=== PATIENT | female | born 1980 | race Caucasian/White ===

== ENCOUNTER 2022-06-16 08:00 | Outpatient (NON) | payer OTHER, SELFPAY | END 2022-06-16 08:01 | disposition home or self-care (01) | PROVIDERS: PCP Family Medicine; Visit Provider Nurse Practitioner | DX: D49.2 Neoplasm of unspecified behavior of bone, soft tissue, and skin (principal) | CPT/HCPCS: 88305 ==

== ENCOUNTER 2025-05-29 09:54 | Emergency (ER) | payer BC, SELFPAY ==
[2025-05-29 10:01] VITALS: BP 105/67; PULSE 53; RESP 18; TEMP 36.7; O2SAT 100
--- OUTSIDE RECORDS SUMMARY | 2025-05-29 10:35 | XMS_ITS | Clinical Summary ---
Author Organization [facility] Address [address] [place] [address] Care Team Providers Care Service Car Driver Name Role Phone Jenelle Booker MD Unavailable [phone] Catarino Sam MD Primary Care Provider [phone] Loli Adam MD Unavailable [phone] Allergies Active Allergy Reactions Criticality Noted Date Comments Chlorzoxazone Hives Medium Reaction: Hives, Lansoprazole Vomiting Low Reaction: Vomiting, Metronidazole Rash Medium Reaction: Rash, Sulfa (Sulfonamide Antibiotics) Hives,Rash Medium Reaction: Hives, Skin Rash, Sulfanilamide Hives Medium Medications levothyroxine (SYNTHROID, LEVOTHROID) 25 mcg tablet TAKE 1 TABLET BY MOUTH EVERY DAY 90 tablet 8 Active SUMAtriptan (IMITREX) 100 mg tablet Take 1 tablet (100 mg total) by mouth once as needed for migraine 2 Active creatine monohydrate 5,000 mg powder in packet Take by mouth as needed After working out Active glutamine 1,000 mg tablet Take by mouth daily Active ascorbic acid/collagen hydr (COLLAGEN SKIN RENEWAL ORAL) Take by mouth daily Active colostrum, bovine (COLOSTRUM PRIME LIFE ORAL) Take by mouth daily Active vitamin B complex capsule Take 1 capsule by mouth daily Active cetirizine (ZyrTEC) 10 mg tablet Take 1 tablet (10 mg total) by mouth daily Active UNABLE TO FIND daily Med Name: Electrolyte Drink Active ibuprofen (ADVIL,MOTRIN) 600 mg tablet Take 1 tablet (600 mg total) by mouth every 6 (six) hours as needed for pain 20 tablet Active Active Problems Problem Noted Date Diagnosed Date Breast pain 03/26/2025 Fibroadenoma of breast, 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 Well woman exam 09/19/2024 Overview (04/28/2025): 04/28/25- ledy with extremely dense breast. MRI recommended q 1-2 years. - ordered by breast surgery 04/2025 Assessment & Plan (09/19/2024 4:26 PM CUT OUT WORKER): Due in 12/2024 Encounter for sterilization 07/31/2024 Assessment & Plan (09/19/2024 4:21 PM CUT OUT WORKER): Doing well Assessment & Plan (08/29/2024 4:27 PM CUT OUT WORKER): Procedure reviewed along with risk, benefits and alternatives as they pertain to her specifically. Questions answered Post op pain management discussed. She voices understanding and desired to proceed. Sterilization 03/31/2023 Assessment & Plan (01/25/2024 9:45 AM CDT): Procedure reviewed along with risk, benefits and alternatives as they pertain to her specifically. Questions answered Post op pain management discussed. She voices understanding and desired to proceed. Assessment & Plan (04/10/2023 4:16 PM CDT): Will schedule blt Hypothyroidism 06/19/2015 Overview (10/20/2016): Hypothyroidism Resolved Problems Problem Noted Date Diagnosed Date Resolved Date Excessive growth affec ting management of in third trimester 04/15/2019 12/17/19 23 Antepartum multigravida of a dvanced maternal age 0904/08/2019 12/16/2022 Supervision of other high ri sk , antepartum 04/05/2019 12/16/2022 Overview (04/08/2019): [] Co-management vs. [] Full [facility] Care; Referring Provider: Jenelle Booker [phone] [x] Dating Criteria: LMP 08/15/18; US 03/05/19 with RITCHIE 05/22/19 [x] Labs: Rh [A+], Ab [negative], Rubella [immune], HIV [non-reactive], HepBSAg [non-reactive], RPR [non-reactive], GC/CT [negative/negative] [x] Genetic Screenin11/08/18: No Aneuploidy for chromosome 13,18 and 21. 11/15/18 Carrier Screen negative. 01/01/19 AFP negative for OBS [x] CBC/Hgb 12.3/plt 36.2/plt 328 [] Early 1hr GTT (if indicated) [x] UCx: 11/08/18 no growth [] Pap: [] LD ASA (if indicated) starting at 12 weeks: [] EPDS [ ]; PNBHS referral (if indicated) 2nd Tri Labs: [] Anatomy ultrasound: [x] CBC/1hr gtt at 24-28wks: 02/28/19 GTT 91 [] Flu Shot (Mar-Jun): [] Tdap (27-36wks): [] Rhogam at 28 wks (if Rh neg): 3rd Tri Labs: [x] CBC/HIV/RPR/T&S:02/28/19: 11.5/33.6; HIV non-reactive; RPR non-reactive [] GBS: [] GC/CT (if indicated): Counselling [] MOD: [] Place of delivery: [] MOC: [] Method of feeding: [] Financial Auditor: [] PP Depression Discussed: Hypothyroid in , antepartum 04/05/2019 12/16/2022 Polyhydramnios in third trim mari, not applicable or unspecified fetus 04/05/2019 12/17/19 Overview (04/05/2019): 02/27/2019 ENRIQUE 23.7cm 03/05/2019 ENRIQUE 22.6 cm, DVP 6.3 cm (WNL) 03/13/2019 ENRIQUE 23 (WNL) 03/26/2019 ENRIQUE 27.79 cm, DVP 8.7cm H/o poly in prior Pyelectasis of fetus - RESOLVED 04/05/2019 12/16/2022 Overview (04/05/2019): 02/27/2019 Rt 5.5mm, 4.8mm (28w0d) 03/05/2019 Rt 5 mm, Lt 5 mm 03/13/2019,Rt. <5mm, Lt <5mm 03/26/2019 RESOLVED Appendicitis 10/17/2016 04/05/2019 Overview (12/09/2016): Appendicitis depression 06/19/20152018 Overview (10/20/2016): depression Encounters Date Type Department Care Team Description 04/28/2025 Results Follow-Up [facility] Women[facility] at [address] [phone] Loli Adam MD Diagnostic Mammogram Bilateral W Tello 04/24/2025 8:30 AM CDT - 04/24/2025 11:59 PM CDT Hospital Encounter [facility] - Breast Imaging [facility]0 [facility] Floor [address] [place] [address] Abnormal mammogram Discharge Disposition: Discharge to home or self care 04/24/2025 8:28 AM CDT - 04/24/2025 11:59 PM CDT Hospital Encounter [facility] - Breast Imaging [address] [facility] Floor [address] [place] [address] Abnormal mammogram; Lump in female breast; Fibroadenoma of breast, left; Extremely dense tissue of both breasts on mammography; Family history of breast cancer Discharge Disposition: Discharge to home or self care 04/24/2025 8:00 AM CDT Office Visit [facility] Surgery [facility] [address] [phone] Luli Khan NP Fibroadenoma of breast, left (Primary Dx); Extremely dense tissue of both breasts on mammography; Family history of breast cancer 04/15/2025 Orders Only [facility] Medicine Surgery [address] [place] [phone] Luli Khan NP 04/10/2025 Orders Only [facility] Surgery [address] [place] [phone] Allyssa Oates NP Abnormal mammogram (Primary Dx) 04/10/2025 Orders Only [facility] Surgery [address] [place] [phone] Allyssa Oates NP Abnormal mammogram (Primary Dx) 04/07/2025 Orders Only [facility] [address] [place] [address] [address] [place] [phone] Vanessa Resendez NP 03/28/2025 Results Follow-Up [facility] Women[facility] Care at [address] [phone] Vanessa Resendez NP Pap, reflex HPV 03/26/2025 8:30 AM CDT Office Visit [facility] [address] [place] [address] [address] [place] [phone] Vanessa Resendez NP Well woman exam (Primary Dx); Decreased libido; Breast pain; Fibroadenoma of breast, left; Encounter for screening mammogram for malignant neoplasm of breast from Last 3 Months Immunizations Immunization Administration Dates Next Due HPV, Quadrivalent 05/15/2007,01/09/2007,11/09/19 07 Influenza, Quadrivalent, Spl it, Intramuscular 06/19/2015 Influenza, Quadrivalent, Spl it, Preservative Free, Intramuscular 06/06/2021,04/28/2020,04/11/2019,04/16 Pfizer SARS-CoV-2 Monovalent Vaccination (12+ Yrs) PURPLE 06/06/2021 Tdap 04/11/2019,10/06/2014 Surgical History Surgery Date Site/Laterality Comments OTHER SURGICAL HISTORY laparotomy for endometriosis APPENDECTOMY 07/17/2016 - 07/16/2017 Laparoscopic Appendectomy TUBAL LIGATION Medical History Medical History Date Comments Hx Other Medical gastris reflux Hx Other Medical Endometrious en dscopy Hx Other Medical IBS Endometritis Endometriosis Hx Other Medical 2009 Endoscopy PONV (postoperative nausea and vomiting) Hypothyroidism Anemia Anxiety GERD (gastroesophageal reflux disease) Stroke (HCC) Family History Medical History Relation Name Comments Other Brother 2 Alive and well; Diabetes Father Diabetes mellit us; Other Father Alive and well; Lymphoma Maternal Grandfather Breast cancer Maternal Grandmother Coronary artery disease Mother Pascual nary artery disease; Other Mother Alive and well; Thyroid disease Mother Thyroid dise ase; Cancer Other 1 Family history of Cancer; Diabetes Other 2 Family history of Diabetes mellitus; Heart disease Other 3 Family history of Heart disease; Osteoarthritis Other 4 Family histor y of Osteoarthritis; Colon cancer Paternal Grandfather Relation Name Status Comments Brother 1 Alive Brother 2 Father Alive Maternal Grandfather Maternal Grandmother Mother Alive Other 1 Other 2 Other 3 Other 4 Paternal Grandfather Social History Tobacco Use Types Packs/Day Years Used Date Smoking Tobacco: Former Cigarettes Q uit: 07/17/2002 Passive Smoke Exposure: Past Smokeless Tobacco: Never Tobacco Cessation:Counseling Given: Not Answered Alcohol Use Standard Drinks/Week Comments Yes 0 (1 standard drink = 0.6 oz pur e alcohol) Humiliation, Afraid, Rape, and Kick questionnair e Answer Date Recorded Within the last year, have y ou been afraid of your partner or ex-partner? No 03/15/2023 Within the last year, have y ou been humiliated or emotionally abused in other ways by your partner or ex-partner? No Within the last year, have y ou been kicked, hit, slapped, or otherwise physically hurt by your partner or ex-partner? No 03/15/2023 Within the last year, have y ou been raped or forced to have any kind of sexual activity by your partner or ex-partner? No 03/15/2023 AUDIT-C Answer Date Recorded Q1: How often do you have a drink containing alc ohol? Monthly or less 08/28/2024 Q2: How many drinks containi ng alcohol do you have on a typical day when you are drinking? 1 or 2 08/28/2024 Frequency of Binge Drinking Not on file 08/17 PHQ-2 Answer Date Recorded PHQ-2 Total Score (If total score is 3 or more points, staff should administer the PHQ-9) 0 03/26/2025 Personal Safety Answer Date Recorded Have you ever been in or are you currently in a harmful physical or emotional relationship or is someone making you feel afraid or unsafe? Denies 09/05/2024 Comments No Sex and Gender Information Value Date Recorded Sex Assigned at Not on file Legal Sex Female 11:42 AM CUT OUT WORKER Gender Identity Not on file Sexual Orientation Straight 10/10/2022 8: 42 AM CDT Obstetrics History Para Term AB IAB SAB Ectopic Multiple Livin g Live Births 2 2 2 Date Outcome GA Total Labor Labor//3rd Weight Sex Type Anes PTL Leana A1 A5 Name Clin Term M Vaginal Term F Vaginal Last Filed Vital Signs Vital Sign Reading Time Taken Comments Blood Pressure 95/56 04/24/2025 8:03 AM CDT Pulse 55 04/24/2025 8:03 AM CDT Temperature 37.3 C (99.1 F) 04/24/2025 8:03 AM CDT Respiratory Rate 18 04/24/2025 8:03 AM CDT Oxygen Saturation 100% 04/24/2025 8:03 AM CDT Inhaled Oxygen Concentration - - Weight 72.2 kg (159 lb 3.2 oz) 04/24/2025 8:40 A M CDT Height 165.1 cm (5' 5) 04/24/2025 8:40 AM CDT Body Mass Index 26.49 04/24/2025 8:40 AM CDT Plan of Treatment Health Maintenance Due Date Last Done Comments Varicella Vaccines (1 of 2 - 13+ 2-dose series) 10/06/1995 Hepatitis B Screening 2000 Covid-19 Vaccine ( season) 2025 06/06/2021, 09/18/2020 Influenza Vaccine (#1) 2025 , 04/28/2020, 04/11/2019, Additional history exists Cervical Cancer Screening 03/26/20262024, 01/03/2024, 12/15/2022 Depression Screening 03/26/2026 03/26/2025, 01/25/2024, 12/15/2022, Additional history exists Regular Well Visit/Exam 18-64 03/26/2026 03/26/2025, 01/03/2024, 12/15/2022, Additional history exists Breast Cancer Screening-Mammogram 04/24/2026 04/24/2025, 02/15/2024, 02/13/2023, Additional history exists DTaP/Tdap/Td Vaccine (3 - Td or Tdap) 04/11/2029 04/11/2019, 10/06/2014 HPV Vaccines Completed 05/15/2007, 12/16, 11/08/2006 Hepatitis C Screening Completed 11/08/2018 Pneumococcal vaccine <65 Aged Out No longer eligible based on patient's age to complete this topic Procedures Procedure Name Priority Date/Time Associated Diagnosis Comments US BREAST LEFT LIMITED Schedule Routine, Read Routine (OP Routine) 04/24/2025 9:31 AM CDT Abnormal mammogram DIAGNOSTIC MAMMOGRAM BILATERAL W TELLO Schedule Routine, Read Routine (OP Routine) 04/24/2025 8:58 AM CDT Lump in female breast PAP, REFLEX HPV Routine 03/26/2025 9:16 AM CDT Well woman exam HEPATITIS C ANTIBODY Routine 11/08/2018 from Last 3 Months or Most Recently Relevant to Health Maintenance Results * US Breast Left Limited (04/24/2025 9:31 AM CDT) Anatomical Region Laterality Modality Breast Left Ultrasound 04/24/2025 9:57 AM CDT Impressions 04/24/2025 10:28 AM CDT 1. The patient's palpable abnormality of the upper outer left breast correlates to an island of dense fibroglandular tissue. 2. No evidence of malignancy in either breast. OVERALL FINAL ASSESSMENT: BI-RADS Category 2: Benign. RECOMMENDATION: 1. Annual screening mammography is recommended. 2. Breast MRI or contrast-enhanced mammography should be considered for supplemental imaging surveillance given extremely dense breast tissue. The above findings and recommendations were communicated to the patient verbally. Dictated by: Flash Li MD PHD The radiology attending physician has personally reviewed this study, and had reviewed and/or edited this written report and agrees with it. Electronically signed by: Ayala Torres MD Narrative 04/24/2025 10:28 AM CDT EXAMINATION: LEFT UNILATERAL DIGITAL DIAGNOSTIC MAMMOGRAM AND DIGITAL BREAST TOMOSYNTHESIS; LEFT BREAST SONOGRAM HISTORY: 44-year-old woman presenting with a palpable area in the upper outer left breast which has been stable for 2 years. It is associated with intermittent tenderness which is not present today. This was evaluated on 02/15/2024 and deemed benign. Family history of breast cancer in her maternal grandmother diagnosed at age 60. COMPARISON: Multiple prior examinations dating back to 2018 including diagnostic mammogram and ultrasound 02/15/2024. TECHNIQUE: Full field digital mammographic views of the LEFT breast were performed, including computer aided detection (CAD) and digital breast tomosynthesis (DBT). Directed ultrasound evaluation of the LEFT breast was performed by a trained chemical laboratory assistant and by Dr. Torres. BREAST PARENCHYMAL COMPOSITION: The breasts are extremely dense, which lowers the sensitivity of mammography. BILATERAL MAMMOGRAM FINDINGS: Subjacent to the triangular skin marker demarcating the patient's reported palpable area, there is a focal asymmetry which appears similar to the prior studies back to 2018. No new suspicious mass, calcification, or architectural distortion in the right breast is seen. There is no new suspicious calcification, architectural distortion or significant change in the left breast. EXAM: Focused exam of the upper outer posterior left breast reveals a 4 x 2 cm ill-defined palpable area. There is no tenderness to palpation. The overlying skin is unremarkable. LEFT SONOGRAM FINDINGS: Targeted left breast ultrasound in the 1:00 left breast 8 cm from nipple corresponding to the palpable area demonstrates an island of dense fibroglandular tissue with no suspicious solid or cystic mass. A normal-appearing lymph node is documented in the 1:00 left breast 11 cm from nipple. us Allyssa Oates NP IMG MAMMO PROCEDURES Final Result * Diagnostic Mammogram Bilateral W Tello (04/24/2025 8:58 AM CDT) Anatomical Region Laterality Modality Breast Bilateral Mammography 04/24/2025 9:57 AM CDT Impressions 04/24/2025 10:28 AM CDT 1. The patient's palpable abnormality of the upper outer left breast correlates to an island of dense fibroglandular tissue. 2. No evidence of malignancy in either breast. OVERALL FINAL ASSESSMENT: BI-RADS Category 2: Benign. RECOMMENDATION: 1. Annual screening mammography is recommended. 2. Breast MRI or contrast-enhanced mammography should be considered for supplemental imaging surveillance given extremely dense breast tissue. The above findings and recommendations were communicated to the patient verbally. Dictated by: Flash Li MD PHD The radiology attending physician has personally reviewed this study, and had reviewed and/or edited this written report and agrees with it. Electronically signed by: Ayala Torres MD Narrative 04/24/2025 10:28 AM CDT EXAMINATION: LEFT UNILATERAL DIGITAL DIAGNOSTIC MAMMOGRAM AND DIGITAL BREAST TOMOSYNTHESIS; LEFT BREAST SONOGRAM HISTORY: 44-year-old woman presenting with a palpable area in the upper outer left breast which has been stable for 2 years. It is associated with intermittent tenderness which is not present today. This was evaluated on 02/15/2024 and deemed benign. Family history of breast cancer in her maternal grandmother diagnosed at age 60. COMPARISON: Multiple prior examinations dating back to 2018 including diagnostic mammogram and ultrasound 02/15/2024. TECHNIQUE: Full field digital mammographic views of the LEFT breast were performed, including computer aided detection (CAD) and digital breast tomosynthesis (DBT). Directed ultrasound evaluation of the LEFT breast was performed by a trained chemical laboratory assistant and by Dr. Torres. BREAST PARENCHYMAL COMPOSITION: The breasts are extremely dense, which lowers the sensitivity of mammography. BILATERAL MAMMOGRAM FINDINGS: Subjacent to the triangular skin marker demarcating the patient's reported palpable area, there is a focal asymmetry which appears similar to the prior studies back to 2018. No new suspicious mass, calcification, or architectural distortion in the right breast is seen. There is no new suspicious calcification, architectural distortion or significant change in the left breast. EXAM: Focused exam of the upper outer posterior left breast reveals a 4 x 2 cm ill-defined palpable area. There is no tenderness to palpation. The overlying skin is unremarkable. LEFT SONOGRAM FINDINGS: Targeted left breast ultrasound in the 1:00 left breast 8 cm from nipple corresponding to the palpable area demonstrates an island of dense fibroglandular tissue with no suspicious solid or cystic mass. A normal-appearing lymph node is documented in the 1:00 left breast 11 cm from nipple. Allyssa Oates NP IMG MAMMO PROCEDURES Final Result * Pap, reflex HPV (03/26/2025 9:16 AM CDT) CLINICAL INFORMATION: Kaylen Romero Comment:None given LMP Kaylen Romero Comment:A Previous Pap Kaylen Romero Comment:NONE GIVEN Prev. Bx Kaylen Romero Comment:NONE GIVEN SOURCE: Kaylen Romero Comment:Cervix, Endocervix Pap, specimen adequacy Kaylen Romero Comment: Satisfactory for evaluation. Endocervical/transformation zone component present. Age and/or menstrual status not provided HPV interp Kaylen Romero Comment: Cytology Results: Negative for intraepithelial lesion or malignancy. COMMENTS Kaylen Romero Comment: This Pap test has been evaluated with the [employer]Prep(R) Imaging System. Alteration Worker Lavon Camacho Comment: YQ, CT(ASCP) CT Screening Location: [facility], [facility] [address] CLIA: [id number] Slide preparation performed at: [facility], [address] [place] [address], [address] CLIA: [id number] Comment Kaylen Romero Comment: EXPLANATORY NOTE: The Pap is a screening test for cervical cancer. It is not a diagnostic test and is subject to false negative and false positive results. It is most reliable when a satisfactory sample, regularly obtained, is submitted with relevant clinical findings and history, and when the Pap result is evaluated along with historic and current clinical information. Thin prep 03/26/2025 9:16 AM CDT 03/27/2025 4:19 PM CDT Vanessa M. Hoemmen BLOCK PRESS OPERATOR LAB CYTOLOGY ORDERABLES Fin al Result [facility] [address] [place] [phone] * Hepatitis C antibody (11/08/2018) SCRIBED HCV ab negative Blood specimen (specimen) Jenelle Booker MD LAB MICROBIOLOGY - [facility] AL ORDERABLES Final Result from Last 3 Months or Most Recently Relevant to Health Maintenance Insurance [employer] [place] [employer] [place] Care Teams Service Car Driver Relationship Specialty Start Date End Date Catarino Sam MD [address] [facility] [address] [place] [address] PCP - General Family Medicine 01/26/22 Jenelle Booker MD [facility] [place] [facility] 04/05/19 Loli Adam MD [address] [facility] [address] [place] [address] Consulting Physician Obstetrics and Gynecology 09/05/24
--- OUTSIDE RECORDS SUMMARY | 2025-05-29 10:35 | XMS_ITS | Encounter Summary ---
Author Organization [facility] Address [address] [place] [address] Phone Care Team Providers Care Appetizer Packer Name Role Phone Catarino Sam MD Primary Care Provider [phone] Ruth Mcdaniels APRN, [facility] Primary Care Provider + Reason for Visit * Reason Comments Medication Refill Encounter Details Date Type Department Care Team (Late st Contact Info) Description 02/07/2022 [facility]ill [facility] [address] [place] [address] Catarino Sam MD [address] [place] [address] Medication Refill Social History Tobacco Use Types Packs/Day Years Used Date Smoking Tobacco: Former Cigarettes 0 Q uit: 2001 Smokeless Tobacco: Never Alcohol Use Standard Drinks/Week Comments Yes 0 (1 standard drink = 0.6 oz pur e alcohol) PHQ-2 Answer Date Recorded PHQ-2 Score 0 06/07/2019 Education Answer Date Recorded What is the highest level of school you have completed or the highest degree you have received? Bachelor's degree (e.g., BA, AB, BS) 12/14/2021 Sexually Active Control Partners Comments Yes Oral Contraceptive Male Comments No Sex and Gender Information Value Date Recorded Sex Assigned at Female 06/19/2023 10:29 AM EARTHMOVING PLANT OPERATOR Legal Sex Female 8:48 PM CDT Gender Identity Female 06/19/2023 10:29 AM EARTHMOVING PLANT OPERATOR Sexual Orientation Straight 06/19/2023 10 :29 AM EARTHMOVING PLANT OPERATOR COVID-19 Exposure Response Date Recorded In the last 10 days, have yo u been in contact with someone who was confirmed or suspected to have Coronavirus/COVID-19? No / Unsure 01/11/2022 7:39 AM CDT documented as of this encounter Miscellaneous Notes * Telephone Encounter - Pratibha Crowell RN - 02/08/2022 10:33 AM CDT Medication failed the protocol, provider to review and approve the medication order if appropriate. Requested Prescriptions Pending Prescriptions Disp Refills escitalopram (LEXAPRO) 10 MG Tablet [Pharmacy Med Name: ESCITALOPRAM 10MG TABLETS] 90 Tablet 2 Sig: Take 1 Tablet by mouth daily. SSRI (6 Month Refill Only) Protocol Failed - 02/07/2022 8:48 AM Failed - Has an encounter in the past 6 months with a depression, anxiety, adjustment disorder, OCD, or PTSD visit diagnosis Passed - No test in the past 12 months or most recent test was negative Passed - No active on record Passed - Visit with relevant provider in past 6 months or upcoming 90 days Recent Visits Date Type Provider Dept 01/11/22 Office Visit Alejandrina Soni APRN, [facility] 12/17/21 Office Visit Catarino Sam MD [facility] Showing recent visits within past 182 days and meeting all other requirements Future Appointments No visits were found meeting these conditions. Showing future appointments within next 90 days and meeting all other requirements Passed - Patient has established therapy with SSRI for at least 6 months documented in this encounter Plan of Treatment Upcoming Encounters Date Type Department Care Team (Late st Contact Info) Description 04/20/2026 7:45 AM CDT Office Visit [facility] - [facility] - [place] [address] [place] [address] Ruth Mcdaniels APRN, SUPERVISOR PAINTING SHIPYARD [address] [place] [address] documented as of this encounter Visit Diagnoses Not on filedocumented in this encounter Additional Health Concerns Assessment Noted Time PHQ-9 Depression Total Score: 0 06/07/20 2:39 PM EARTHMOVING PLANT OPERATOR documented as of this encounter Care Teams Appetizer Packer Relationship Specialty Start Date End Date Catarino Sam MD PCP - General Family Medicine 06/07/19 02/19/24 Ruth Mcdaniels APRN, SUPERVISOR PAINTING SHIPYARD [address] [place] [address] PCP - General Advanced Practice Nurse 02/20/24 documented as of this encounter
--- OUTSIDE RECORDS SUMMARY | 2025-05-29 10:35 | XMS_ITS | Encounter Summary ---
Author Organization [facility] Address [address] [place] [address] Phone Care Team Providers Care Manufacturing Design Engineer Name Role Phone Catarino Sam MD Primary Care Provider [phone] Ruth Mcdaniels APRN, [facility] Primary Care Provider + Reason for Visit * Reason Comments Medication Refill Encounter Details Date Type Department Care Team (Late st Contact Info) Description 06/27/2023 Refill [facility] [address] [place] [address] Catarino Sam MD [address] [place] [address] Medication Refill Social History Tobacco [...] Sex Assigned at Female 06/19/2023 10:29 AM MOBILE SALES TECHNICIAN Legal Sex Female 8:48 PM CDT Gender Identity Female 06/19/2023 10:29 AM MOBILE SALES TECHNICIAN Sexual Orientation Straight 06/19/2023 10 :29 AM MOBILE SALES TECHNICIAN documented as of this encounter Miscellaneous Notes * Telephone Encounter - Pratibha Crowell RN - 06/28/2023 8:50 AM CST Medication failed the protocol, provider to review and approve the medication order if appropriate. Requested Prescriptions Pending Prescriptions Disp Refills SUMAtriptan (IMITREX) 100 MG Tablet [Pharmacy Med Name: SUMATRIPTAN 100MG TABLETS] 9 Tablet 6 Sig: TAKE 1 TABLET BY MOUTH DAILY NEEDED FOR MIGRAINE, MAY REPEAT DOSE IN 2 HOURS IF HEADACHE RECURS Not Delegated - Serotonin Agonists (Oral and Nasal) Protocol Failed - 06/27/2023 8:09 PM Failed - This refill cannot be delegated; check utilization no more than 9 doses per month Failed - No documented Systolic BP > 200 within past 3 months Passed - Visit with relevant provider in past 24 months or upcoming 90 days Recent Visits Date Type Provider Dept 11/11/22 Telemedicine Lorenzo Miller APRN, [facility] [place] 08/10/22 Telemedicine Lorenzo Miller APRN, [facility] 07/19/22 Office Visit Ruth Mcdaniels APRN, [facility] 01/11/22 Office Visit Alejandrina Soni APRN, ASH CONVEYOR OPERATOR [facility] 12/17/21 Office Visit Catarino Sam MD [facility] 08/05/21 Office Visit Catarino Sam MD [facility] [place] Showing recent visits within past 730 days and meeting all other requirements Future Appointments No visits were found meeting these conditions. Showing future appointments within next 90 days and meeting all other requirements Passed - Number of active Serotonergic medications less than 3 LE SALES TECHNICIAN documented in this encounter Plan of Treatment Upcoming Encounters Date Type Department Care Team (Late st Contact Info) Description 04/20/2026 7:45 AM CDT Office Visit [facility] - Family Medicine - [place] [address] [place] [address] Ruth Mcdaniels, PI/SENIOR RESEARCH ASSOCIATE, ASH CONVEYOR OPERATOR [address] [place] [address] documented as of this encounter Visit Diagnoses Not on filedocumented in this encounter Additional Health Concerns Assessment Noted Time PHQ-9 Depression Total Score: 0 06/07/20 19 2:39 PM MOBILE SALES TECHNICIAN documented as of this encounter Care Teams Manufacturing Design Engineer Relationship Specialty Start Date End Date Catarino Sam MD PCP - General Family Medicine 06/07/19 02/19/24 Ruth Mcdaniels, PI/SENIOR RESEARCH ASSOCIATE, ASH CONVEYOR OPERATOR [address] [place] [address] PCP - General Advanced Practice Nurse 02/20/24 documented as of this encounter
--- OUTSIDE RECORDS SUMMARY | 2025-05-29 10:35 | XMS_ITS | Encounter Summary ---
Author Organization [facility] Address [address] [place] [address] Phone Care Team Providers Care Child & Adolescent Psychiatrist Name Role Phone Catarino Sam MD Primary Care Provider [phone] Ruth Mcdaniels APRN, [facility] Primary Care Provider + Reason for Visit * Reason Comments Medication Refill Encounter Details Date Type Department Care Team (Late st Contact Info) Description 02/20/2021 Refill [facility] [address] [place] [address] Catarino Sam MD [address] [place] [address] Medication Refill Social History Tobacco Use Types Packs/Day Years Used Date Smoking Tobacco: Former Cigarettes 0 Q uit: 2001 Smokeless Tobacco: Never Alcohol Use Standard Drinks/Week Comments Yes 0 (1 standard drink = 0.6 oz pur e alcohol) PHQ-2 Answer Date Recorded PHQ-2 Score 0 06/07/2019 Sexually Active Control Partners Comments Yes Oral Contraceptive Male Comments No Sex and Gender Information Value Date Recorded Sex Assigned at Female 06/19/2023 10:29 AM MANAGER ACQUISITION Legal Sex Female 8:48 PM CDT Gender Identity Female 06/19/2023 10:29 AM MANAGER ACQUISITION Sexual Orientation Straight 06/19/2023 10 :29 AM MANAGER ACQUISITION documented as of this encounter Miscellaneous Notes * Telephone Encounter - Marily Hickman - 02/22/2021 12:47 PM CDT Called patient and she made an appointment on 02/24/2021. * Telephone Encounter - Jacqui Fagan CMA - 02/22/2021 12:46 PM CDT [employer] message was sent to patient. * Telephone Encounter - Pratibha Crowell RN - 02/22/2021 12:15 PM CDT Patient needs an appointment with PCP * Telephone Encounter - Pratibha Crowell RN - 02/22/2021 12:14 PM CDT Medication failed the protocol, provider to review and approve the medication order if appropriate. Requested Prescriptions Pending Prescriptions Disp Refills escitalopram (LEXAPRO) 10 MG Tablet [Pharmacy Med Name: ESCITALOPRAM 10MG TABLETS] 90 Tablet 0 Sig: TAKE 1 TABLET BY MOUTH EVERY DAY SSRI (6 Month Refill Only) Protocol Failed - 02/20/2021 8:07 PM Failed - Visit with relevant provider in past 6 months or upcoming 90 days Recent Visits No visits were found meeting these conditions. Showing recent visits within past 182 days and meeting all other requirements Future Appointments No visits were found meeting these conditions. Showing future appointments within next 90 days and meeting all other requirements Failed - Has an encounter in the past 6 months with a depression, anxiety, adjustment disorder, OCD, or PTSD visit diagnosis Passed - No test in the past 12 months or most recent test was negative Passed - No active on record Passed - Patient has established therapy with SSRI for at least 6 months documented in this encounter Plan of Treatment Upcoming Encounters Date Type Department Care Team (Late st Contact Info) Description 04/20/2026 7:45 AM CDT Office Visit [facility] [address] [place] [address] Ruth Mcdaniels, CHRISTIAN, RETAIL KEY HOLDER [address] [place] [address] documented as of this encounter Visit Diagnoses Not on filedocumented in this encounter Additional Health Concerns Infection Onset Date Last Indicated Resolved Time COVID - 19 06/30/2021 06/30/2021 07/20/2021 12:1 6 AM MANAGER ACQUISITION Assessment Noted Time PHQ-9 Depression Total Score: 0 06/07/20 19 2:39 PM MANAGER ACQUISITION documented as of this encounter Care Teams Child & Adolescent Psychiatrist Relationship Specialty Start Date End Date Catarino Sam MD PCP - General Family Medicine 06/07/19 02/19/24 Ruth Mcdaniels, CHRISTIAN, RETAIL KEY HOLDER [address] [place] [address] PCP - General Advanced Practice Nurse 02/20/24 documented as of this encounter
--- OUTSIDE RECORDS SUMMARY | 2025-05-29 10:35 | XMS_ITS | Encounter Summary ---
Author Organization [facility] Address [address] [place] [address] Care Team Providers Care Aeronautics Teacher Name Role Phone Jenelle Booker MD Unavailable [phone] Catarino Sam MD Primary Care Provider [phone] Loli Adam MD Unavailable [phone] Encounter Details Date Type Department Care Team (Late st Contact Info) Description 03/28/2025 Results Follow-Up [facility] at [address] [address] Vanessa Resendez, CONTRACT RUNNER 4 [facility] [address] [address] Pap, reflex HPV Social History Tobacco Use Types Packs/Day Years Used Date Smoking Tobacco: Former Cigarettes Q uit: 07/17/2002 Smokeless Tobacco: Never Alcohol Use Standard Drinks/Week [...] on file Legal Sex Female 11:42 AM AIR CONDITIONING SERVICE TECHNICIAN Gender Identity Not on file Sexual Orientation Straight 10/10/2022 8: 42 AM CDT documented as of this encounter Functional Status * BP Location Answer Date of Assessment Author Left arm 04/24/2025 8:03 AM CDT Scales, A shin * BP Location Answer Date of Assessment Author Left arm 04/24/2025 8:03 AM CDT Scales, A shin documented as of this encounter Plan of Treatment Not on file documented as of this encounter Visit Diagnoses Not on filedocumented in this encounter Care Teams Aeronautics Teacher Relationship Specialty Start Date End Date Catarino Sam MD [address] [address] PCP - General Family Medicine 01/26/22 Jenelle Booker MD Account Development Manager Obstetrics and Gynecology 04/05/19 Loli Adam MD [address] [facility] [address] [place] [id number] Consulting Physician Obstetrics and Gynecology 09/05/24 documented as of this encounter
--- OUTSIDE RECORDS SUMMARY | 2025-05-29 10:35 | XMS_ITS | Encounter Summary ---
Author Organization [facility] Address [address] [place] [address] Phone Care Team Providers Care Therapy Site Coordinator Name Role Phone Catarino Sam MD Primary Care Provider [phone] Ruth Mcdaniels APRN, [facility] Primary Care Provider + Reason for Visit * Reason Comments Medication Refill Encounter Details Date Type Department Care Team (Late st Contact Info) Description 06/28/2022 Refill [facility] Family Medicine [facility] [address] [place] [address] Catarino Sam MD [address] [place] [address] Medication Refill Social History Tobacco [...] Sex Assigned at Female 06/19/2023 10:29 AM COMMUNITY CASE MANAGER Legal Sex Female 8:48 PM CDT Gender Identity Female 06/19/2023 10:29 AM COMMUNITY CASE MANAGER Sexual Orientation Straight 06/19/2023 10 :29 AM COMMUNITY CASE MANAGER documented as of this encounter Miscellaneous Notes * Telephone Encounter - Anai Santos RN - 06/29/2022 11:18 AM CST Medication failed the protocol, provider to review and approve the medication order if appropriate. Requested Prescriptions Pending Prescriptions Disp Refills levothyroxine (SYNTHROID) 25 MCG Tablet [Pharmacy Med Name: LEVOTHYROXINE 0.025MG (25MCG) TAB] 90 Tablet 3 Sig: Take 1 Tablet by mouth daily. Thyroid Hormones Protocol Failed - 06/28/2022 8:34 PM Failed - Normal TSH in past 12 months TSH Date Value Ref Range Status 02/24/2021 1.760 0.270 - 4.200 mIU/L Final Passed - No test in the past 12 months or most recent test was negative Passed - Visit with relevant provider in past 12 months or upcoming 90 days Recent Visits Date Type Provider Dept 01/11/22 Office Visit Alejandrina Soni APRN, SECURITY ALARM TECHNICIAN [facility] [place] 12/17/21 Office Visit Catarino Sam MD [facility] 08/05/21 Office Visit Cat[facility]ino Sam MD [facility] Showing recent visits within past 365 days and meeting all other requirements Future Appointments No visits were found meeting these conditions. Showing future appointments within next 90 days and meeting all other requirements Passed - No active on record UNITY CASE MANAGER documented in this encounter Plan of Treatment Upcoming Encounters Date Type Department Care Team (Late st Contact Info) Description 04/20/2026 7:45 AM CDT Office Visit [facility] - Family Medicine - [place] [address] [place] [address] Ruth Mcdaniels, DELIVERY SALES WORKER, SECURITY ALARM TECHNICIAN [address] [place] [address] documented as of this encounter Visit Diagnoses Not on filedocumented in this encounter Additional Health Concerns Assessment Noted Time PHQ-9 Depression Total Score: 0 06/07/20 19 2:39 PM COMMUNITY CASE MANAGER documented as of this encounter Care Teams Therapy Site Coordinator Relationship Specialty Start Date End Date Catarino Sam MD PCP - General Family Medicine 06/07/19 02/19/24 Ruth Mcdaniels, DELIVERY SALES WORKER, SECURITY ALARM TECHNICIAN [address] [place] [address] PCP - General Advanced Practice Nurse 02/20/24 documented as of this encounter
--- OUTSIDE RECORDS SUMMARY | 2025-05-29 10:35 | XMS_ITS | Encounter Summary ---
Author Organization [facility] Address [address] [place] [address] Phone Care Team Providers Care Basting Machine Operator Name Role Phone Catarino Sam MD Primary Care Provider [phone] Ruth Mcdaniels APRN, [facility] Primary Care Provider + Reason for Visit * Reason Comments Medication Refill Encounter Details Date Type Department Care Team (Late st Contact Info) Description 06/26/2023 Refill [facility] Family Medicine [facility] [address] [place] [address] Catarino Sam MD [address] [place] [address] Medication Refill Social History Tobacco [...] Sex Assigned at Female 06/19/2023 10:29 AM YOUTH NUTRITIONAL MONITOR Legal Sex Female 8:48 PM CDT Gender Identity Female 06/19/2023 10:29 AM YOUTH NUTRITIONAL MONITOR Sexual Orientation Straight 06/19/2023 10 :29 AM YOUTH NUTRITIONAL MONITOR documented as of this encounter Miscellaneous Notes * Telephone Encounter - Pratibha Crowell RN - 06/27/2023 10:08 AM CST Medication failed the protocol, provider to review and approve the medication order if appropriate. Requested Prescriptions Pending Prescriptions Disp Refills levothyroxine (SYNTHROID) 25 MCG Tablet [Pharmacy Med Name: LEVOTHYROXINE 0.025MG (25MCG) TAB] 90 Tablet 0 Sig: TAKE 1 TABLET BY MOUTH DAILY Thyroid Hormones Protocol Failed - 06/26/2023 9:41 PM Failed - Normal TSH in past 12 months TSH Date Value Ref Range Status 02/24/2021 1.760 0.270 - 4.200 mIU/L Final Passed - No test in the past 12 months or most recent test was negative Passed - Visit with relevant provider in past 12 months or upcoming 90 days Recent Visits Date Type Provider Dept 11/11/22 Telemedicine Lorenzo Miller APRN, CNP [facility] 08/10/22 Telemedicine Lorenzo Milelr APRN, CNP [facility] 07/19/22 Office Visit [facility]iels APRN, [facility] Showing recent visits within past 365 days and meeting all other requirements Future Appointments No visits were found meeting these conditions. Showing future appointments within next 90 days and meeting all other requirements Passed - No active on record H NUTRITIONAL MONITOR documented in this encounter Plan of Treatment Upcoming Encounters Date Type Department Care Team (Late st Contact Info) Description 04/20/2026 7:45 AM CDT [facility] Visit [facility] - [place] [address] [place] [address] Ruth Mcdaniels APRN, BEHAVIORAL HEALTH CARE COORDINATOR [address] [place] [address] documented as of this encounter Visit Diagnoses Not on filedocumented in this encounter Additional Health Concerns Assessment Noted Time PHQ-9 Depression Total Score: 0 06/07/20 19 2:39 PM YOUTH NUTRITIONAL MONITOR documented as of this encounter Care Teams Basting Machine Operator Relationship Specialty Start Date End Date Catarino Sam MD PCP - General Family Medicine 06/07/19 02/19/24 Ruth Mcdaniels, COMPONENT LAB TECH, BEHAVIORAL HEALTH CARE COORDINATOR [address] [place] [address] PCP - General Advanced Practice Nurse 02/20/24 documented as of this encounter
--- OUTSIDE RECORDS SUMMARY | 2025-05-29 10:35 | XMS_ITS | Clinical Summary ---
Author Organization [facility] Address [address] [place] [address] Phone Care Team Providers Care Outdoor Emergency Care Technician Name Role Phone Ruth Mcdaniels BLANKET WEAVER, TREAD BUILDER Primary Care Provider + Allergies Active Allergy Reactions Criticality Noted Date Comments Chlorzoxazone Unknown,Hives Medium 11/01/2023 Reaction: Hives, Lansoprazole Vomiting Low 06/07/2019 Reaction: Vomiting, Metronidazole Rash Medium 06/07/2019 Reaction: Rash, Sulfa Antibiotics Unknown Medications Magnesium Oxide 400 MG Capsule Take by mouth. Active CREATINE MONOHYDRATE PO Take by mouth. Active spironolactone (ALDACTONE) 50 MG Tablet Take 50 mg by mouth daily. 4 Active SUMAtriptan (IMITREX) 100 MG TabletIndications:M igraine without status migrainosus, not intractable, unspecified migraine type Take 1 Tablet by mouth once as needed for Migraine for up to 1 dose. Use as directed. May repeat dose in 2 hours if headache recurs. 9 Tablet 3 4 Active hydrOXYzine (ATARAX) 25 MG Tablet TAKE 1 TABLET BY MOUTH EVERY 6 HOURS NEEDED FOR ANXIETY 30 Tablet 5 Active levothyroxine (SYNTHROID) 25 MCG TabletIndications:A cquired hypothyroidism Take 1 Tablet by mouth daily. 90 Tablet 1 10/02/202 5 Active Active Problems Problem Noted Date Diagnosed Date Depression, 07/17/2018 Hypothyroidism 07/18/2014 Overview (06/07/2019): Hypothyroidism Resolved Problems Problem Noted Date Diagnosed Date Resolved Date Sprain of ankle, right 07/20 Sprain of right foot 020 Encounters Date Type Department Care Team Description 05/19/2025 Results Follow-Up [facility] [address] [facility] [place] [address] Ruth Mcdaniels APRN, TREAD BUILDER LIPID PANEL, CMP (COMPREHENSIVE METABOLIC PANEL), HEPATITIS C ANTIBODY, Additional followed-up results: 2 05/09/2025 8:30 AM CDT Lab [facility] [address] [place] [address] [facility]/Anc[facility] Well adult exam; Need for hepatitis C screening test Discharge Disposition: Discharged to home or Selfcare 05/09/2025 Travel 05/07/2025 Travel 04/25/2025 Travel 04/17/2025 Refill [facility] [address] [facility] [place] [address] Ruth Mcdaniels APRN, TREAD BUILDER Medication Refill 04/16/2025 4:00 PM CDT Office Visit [facility] [address] [facility] [place] [address] Ruth Mcdaniels APRN, YURIDIA Well adult exam (Primary Dx); Need for hepatitis C screening test Discharge Disposition: Discharged to home or Selfcare 04/16/2025 Travel 04/13/2025 Refill [facility] [address]2 [facility] [place] [address] Ruth Mcdaniels APRN, TREAD BUILDER Medication Refill 03/24/2025 Refill [facility] [address] [facility] [place] [address] Ruth Mcdaniels APRN, YURIDIA Medication Refill 03/22/2025 [facility] [place] [address] Ruth Mcdaniels APRN, YURIDIA Medication Refill 03/05/2025 Refill [facility] [address] [place] [address] Ruth Mcdaniels APRN, TREAD BUILDER Medication Refill from Last 3 Months Immunizations Immunization Administration Dates Next Due Covid-19 Vaccine, Vector-nr, Rs-ad26, Pf, 0.5 Ml ([employer]) 09/18/2020 Influenza Vaccine, Quadrivalent, PF 05/18,04/28/2020,04/11/2019,2013 Influenza, Injectable, Quadrivalent 06/19/2015 TDAP Vaccine 04/11/2019,10/06/2014 Family History Medical History Relation Name Comments Diabetes Father Rogelio type 2 Congestive Heart Failure Maternal Grandfather Dementia Maternal Grandmother Depression Mother Carmen Heart Disease Mother Carmen valve replacem ent Colon Cancer Paternal Grandfather No Known Problems Paternal Grandmother Yeny Relation Name Status Comments Brother Jeff Alive Father Rogelio Alive Maternal Grandfather Maternal Grandmother Mother Carmen Alive Paternal Grandfather Paternal Grandmother Yeny Alive Social History Tobacco Use Types Packs/Day Years Used Date Smoking Tobacco: Former Cigarettes 0 Q uit: 2001 Smokeless Tobacco: Never Alcohol Use Standard Drinks/Week Comments Yes 2 (1 standard drink = 0.6 oz pur e alcohol) Social Connection and Isolation Panel Answer Date Recorded In a typical week, how many times do you talk on the phone with family, friends, or neighbors? More than three times a week 02/19/2024 How often do you get togethe r with friends or relatives? More than three times a week 02/19/2024 How often do you attend chur or scientology services? More than 4 times per year 02/19/2024 Do you belong to any clubs o r organizations such as buddhist groups, unions, fraternal or athletic groups, or school groups? Yes 02/19/2024 How often do you attend meet ings of the clubs or organizations you belong to? 1 to 4 times per year 02/19/2024 Are you , , di vorced, , never , or living with a partner? 02/19/2024 AUDIT-C Answer Date Recorded Q1: How often do you have a drink containing alc ohol? 2-4 times a month 02/19/2024 Q2: How many drinks containi ng alcohol do you have on a typical day when you are drinking? 3 or 4 02/19/2024 Q3: How often do you have si x or more drinks on one occasion? Less than monthly 02/19/2024 Overall Financial Resource Strain (CARDIA) Answe r Date Recorded How hard is it for you to pa y for the very basics like food, housing, medical care, and heating? Not very hard 02/19/2024 PHQ-2 Answer Date Recorded Total Score - Questions 1-9 0 07/2024 [facility] - Occupational Stress Questionnaire Answer Date Recorded Do you feel stress - tense, restless, nervous, or anxious, or unable to sleep at night because your mind is troubled all the time - these days? To some extent 02/19/2024 Hunger Vital Sign Answer Date Recorded Within the past 12 months, y ou worried that your food would run out before you got the money to buy more. Never true 02/19/20 24 Within the past 12 months, t he food you bought just didn't last and you didn't have money to get more. Never true 02/19/2024 PRAPARE - Transportation Answer Date Re corded In the past 12 months, has l ack of transportation kept you from medical appointments or from getting medications? No 11/2023 In the past 12 months, has l ack of transportation kept you from meetings, work, or from getting things needed for daily living? No 02/19/2024 Housing Stability Vital Sign Answer Rancho e Recorded In the last 12 months, was t here a time when you were not able to pay the mortgage or rent on time? No 10/30/2023 Number of Places Lived in the Last Year Not on f ile 10/30/2023 In the last 12 months, was t here a time when you did not have a steady place to sleep or slept in a fpc (including now)? No 10/30/2023 Housing Stability Vital Sign Answer Rancho e Recorded In the last 12 months, was t here a time when you were not able to pay the mortgage or rent on time? No 02/19/2024 Number of Times Moved in the Last Year Not on fi le 02/19/2024 At any time in the past 12 m [facility], were you homeless or living in a fpc (including now)? No 02/19/2024 Social Connection and Isolation Panel Answer Date Recorded In a typical week, how many times do you talk on the phone with family, friends, or neighbors? More than three times a week 04/16/2025 How often do you get togethe r with friends or relatives? More than three times a week 04/16/2025 How often do you attend chur ch or scientology services? More than 4 times per year 04/16/2025 Do you belong to any clubs o r organizations such as buddhist groups, unions, fraternal or athletic groups, or school groups? Yes 04/16/2025 How often do you attend meet ings of the clubs or organizations you belong to? 1 to 4 times per year 04/16/2025 Are you , , di vorced, , never , or living with a partner? 04/16/2025 AUDIT-C Answer Date Recorded Q1: How often do you have a drink containing alc ohol? 2-4 times a month 04/16/2025 Q2: How many drinks containi ng alcohol do you have on a typical day when you are drinking? 3 or 4 04/16/2025 Q3: How often do you have si x or more drinks on one occasion? Less than monthly 04/16/2025 Overall Financial Resource Strain (CARDIA) Answe r Date Recorded How hard is it for you to pa y for the very basics like food, housing, medical care, and heating? Not hard at all 04/16/2025 [facility] - Occupational Stress Questionnaire Answer Date Recorded Do you feel stress - tense, restless, nervous, or anxious, or unable to sleep at night because your mind is troubled all the time - these days? Only a little 04/16/2025 Exercise Vital Sign Answer Date Recorde d On average, how many days pe r week do you engage in moderate to strenuous exercise (like a brisk walk)? 6 days 04/16/2025 On average, how many minutes do you engage in exercise at this level? 60 min 04/16/2025 Hunger Vital Sign Answer Date Recorded Within the past 12 months, y ou worried that your food would run out before you got the money to buy more. Never true 04/16/20 25 Within the past 12 months, t he food you bought just didn't last and you didn't have money to get more. Never true 04/16/2025 PRAPARE - Transportation Answer Date Re corded In the past 12 months, has l ack of transportation kept you from medical appointments or from getting medications? No 07/2024 In the past 12 months, has l ack of transportation kept you from meetings, work, or from getting things needed for daily living? No 04/16/2025 Housing Stability Vital Sign Answer Rancho e Recorded In the last 12 months, was t here a time when you were not able to pay the mortgage or rent on time? No 04/16/2025 In the past 12 months, how m any times have you moved where you were living? 0 04/16/2025 At any time in the past 12 m [facility], were you homeless or living in a fpc (including now)? No 04/16/2025 [facility] Utilities Answer Date Recorded In the past 12 months has th e electric, gas, oil, or water company threatened to shut off services in your home? No 04/16/2025 Education Answer Date Recorded What is the highest level of school you have completed or the highest degree you have received? Bachelor's degree (e.g., BA, AB, BS) 12/14/2021 Sexually Active Control Partners Comments Yes Oral Contraceptive Male Comments No Sex and Gender Information Value Date Recorded Sex Assigned at Female 06/19/2023 10:29 AM MARINE GEOLOGIST Legal Sex Female 8:48 PM CDT Gender Identity Female 06/19/2023 10:29 AM MARINE GEOLOGIST Sexual Orientation Straight 06/19/2023 10 :29 AM MARINE GEOLOGIST Last Filed Vital Signs Vital Sign Reading Time Taken Comments Blood Pressure 116/64 04/16/2025 4:05 PM CDT Pulse 54 04/16/2025 4:05 PM CDT Temperature 37.2 C (99 F) 04/16/2025 4:05 PM CDT Respiratory Rate 18 04/16/2025 4:05 PM CDT Oxygen Saturation 99% 04/16/2025 4:05 PM CDT Inhaled Oxygen Concentration - - Weight 71 kg (156 lb 9.6 oz) 04/16/2025 4:05 PM CDT Height 165.1 cm (5' 5) 04/16/2025 4:05 PM CDT Body Mass Index 26.06 04/16/2025 4:05 PM CDT Plan of Treatment Upcoming Encounters Date Type Department Care Team (Late st Contact Info) Description 04/20/2026 7:45 AM CDT [facility] Visit [facility] [address] [place] [address] Ruth Mcdaniels, BLANKET WEAVER, TREAD BUILDER [address] [place] [address] Health Maintenance Due Date Last Done Comments Hepatitis B Immunization (1 of 3 - 19+ 3-dose series) 2001 Pap Smear 10/06/2003 Cervical Cancer Screening (CCS) 2012 HPV/Cotest 2012 Influenza Immunization (#1) 03/17/202505/18, 04/28/2020, 04/11/2019, Additional history exists SARS-COV-2 Immunization ( season) 2025 06/06/2021, 09/18/2020 Mammogram 04/24/2026 04/24/2025, 08/0 07/2023, 02/15/2024, Additional history exists Td Immunization Every 10 Years (Adults With 1 Tdap) 04/11/2029 04/11/2019, 10/06/2014 Respiratory Syncytial Virus (RSV) Immunization (Adult) (1 - 1-dose 75+ series) 2057 Human Papillomavirus (HPV) Immunization Completed 05/15/2007, 01/09/2007, 11/08/2006 Discussion re Starting/Frequency of Mammograms Completed 04/24/2025, 04/24/2025, 02/15/2024, Additional history exists Hepatitis C Virus (HCV) Screening Completed 05/09/2025 Meningococcal Immunization (ACWY) Aged Out No longer eligible based on patient's age to complete this topic Pneumococcal Immunization Combined Aged Out No longer eligible based on patient's age to complete this topic Rotavirus Immunization Aged Out No lo nger eligible based on patient's age to complete this topic Procedures Procedure Name Priority Date/Time Associated Diagnosis Comments THYROID SCREEN WITH REFLEX Routine 05/09/2025 8:32 AM CDT Well adult exam CBC WITH AUTO DIFFERENTIAL Routine 05/09/2025 8:32 AM CDT Well adult exam HEPATITIS C ANTIBODY Routine 05/09/2025 8:32 AM CDT Need for hepatitis C screening test THYROID SCREEN WITH REFLEX Routine 05/09/2025 8:32 AM CDT Well adult exam COMPLETE BLOOD COUNT (CBC) WITH DIFF Routine 05/09/2025 8:32 AM CDT Well adult exam CMP (COMPREHENSIVE METABOLIC PANEL) Routine 05/09/2025 8:32 AM CDT Well adult exam LIPID PANEL Routine 05/09/2025 8:32 AM CDT Well adult exam US - CHEST 04/24/2025 12:00 AM CDT MAMMOGRAM UNILATERAL GENERIC 04/24/2025 12:00 AM CDT MAMMOGRAM BILATERAL GENERIC 02/15/2024 12:00 AM CDT from Last 3 Months or Most Recently Relevant to Health Maintenance Results * THYROID SCREEN WITH REFLEX (05/09/2025 8:32 AM CDT) TSH 1.083 0.300 - 5.000 mIU/L 05/09/2025 1:27 PM CDT [facility] Blood Venipuncture / Unknown 05/09/2025 8:32 AM CDT 05/09/2025 8:32 AM CDT us Ruth Mcdaniels BLANKET WEAVER, TREAD BUILDER CHEMISTRY ORDERABLES Fin al Result [facility] [address] [place] [address] * (ABNORMAL) CBC WITH AUTO DIFFERENTIAL (05/09/2025 8:32 AM CDT) WBC 3.52(L) 4.00 - 12.00 10(3)/mcL 05/09/2025 12:33 PM CDT [facility] RBC 4.25 3.80 - 5.30 10(6)/mcL 05/09/2025 12:33 PM CDT [facility] HEMOGLOBIN (HGB) 13.6 12.0 - 15.8 g/dL 05/09/2025 12:33 PM CDT [facility] HEMATOCRIT (HCT) 40.0 36.0 - 47.0 % 05/09/2025 12:33 PM CDT [facility] MCV 94.1 82.0 - 96.0 fL 05/09/2025 12:33 PM CDT [facility] MCH 32.0 26.0 - 34.0 pg 05/09/2025 12:33 PM CDT [facility] MCHC 34.0 31.0 - 36.0 g/dL 05/09/2025 12:33 PM CDT [facility] PLATELET COUNT 328 140 - 440 10(3)/mcL 05/09/2025 12:33 PM CDT [facility] RDW 12.1 11.8 - 15.5 % 05/09/2025 12:33 PM CDT [facility] MPV 9.2(L) 9.7 - 12.4 fL 05/09/2025 12:33 PM CDT [facility] NEUTROPHILS 50.8 47.0 - 73.0 % 05/09/2025 12:33 PM CDT [facility] LYMPHOCYTES 38.9 18.0 - 42.0 % 05/09/2025 12:33 PM CDT [facility] MONOCYTES 8.0 4.0 - 12.0 % 05/09/2025 12:33 PM CDT [facility] EOSINOPHILS 1.4 0.0 - 5.0 % 05/09/2025 12:33 PM CDT [facility] BASOPHILS 0.9 0.0 - 1.0 % 05/09/2025 12:33 PM CDT [facility] IMMATURE GRANULOCYTE 0.0 0.0 - 0.4 % 05/09/2025 12:33 PM CDT [facility] ABSOLUTE NEUTROPHILS 1.79 1.60 - 7.70 10(3)/[facility] 05/09/2025 12:33 PM CDT [facility] ABSOLUTE LYMPHOCYTES 1.37 1.30 - 3.20 10(3)/[facility] 05/09/2025 12:33 PM CDT [facility] ABSOLUTE MONOCYTES 0.28 0.20 - 1.00 10(3)/[facility] 05/09/2025 12:33 PM CDT [facility] ABSOLUTE EOSINOPHIL 0.05 0.00 - 0.40 10(3)/[facility] 05/09/2025 12:33 PM CDT [facility] ABSOLUTE BASOPHILS 0.03 0.00 - 0.10 10(3)/mcL 05/09/2025 12:33 PM CDT [facility] ABSOLUTE IMMATURE GRANULOCYTE 0.00 0.00 - 0.03 10 (3) mcL. 05/09/2025 12:33 PM CDT [facility] NRBC PER 100 WBC 0 05/09/20 12:33 PM CDT [facility] Blood Venipuncture / Unknown 05/09/2025 8:32 AM CDT 05/09/2025 8:32 AM CDT us Ruth Mcdaniels BLANKET WEAVER, TREAD BUILDER HEMATOLOGY ORDERABLES Fi nal Result [facility] [address] [place] [address] * (ABNORMAL) LIPID PANEL (05/09/2025 8:32 AM CDT) CHOLESTEROL 219(H) <200 mg/dL 05/09/2025 1:17 PM CDT [facility] TRIGLYCERIDES 63 <150 mg/dL 05/09/2025 1:17 PM CDT [facility] HDL CHOLESTEROL 79 >40 mg/dL 1:17 PM CDT [facility] LDL 127 <130 mg/dL 05/09/2025 1:17 PM CDT [facility] VLDL 13 10 - 50 mg/dL 05/09/2025 1:17 PM CDT [facility] CHOL/HDL RATIO 2.8 0.0 - 4.4 05/09/2025 1:17 PM CDT [facility] NON-HDL CHOLESTEROL 140(H) <130 mg/dL 05/09/2025 1:17 PM CDT [facility] IS THE PATIENT REQUIRED TO BE FASTING? Yes 05/09/2025 1:17 PM CDT [facility] HAS THE PATIENT BEEN FASTING? Yes 05/09/2025 1:17 PM CDT [facility] Blood Venipuncture / Unknown 05/09/2025 8:32 AM CDT 05/09/2025 8:32 AM CDT Ruth Mcdaniels BLANKET WEAVER, TREAD BUILDER CHEMISTRY ORDERABLES Fin al Result [facility] [address] [place] [address] * HEPATITIS C ANTIBODY (05/09/2025 8:32 AM CDT) hepatitis C antibody 0.19 <1 S/CO 05/09/2025 10:39 PM CDT [facility] Comment: Signal/Cutoff ratio < 0.79 is Nondetected Signal/Cutoff ratio 0.80-0.99 is Grayzone Signal/Cutoff ratio > 0.99 is Detected Supplemental assays are recommended if signal/cutoff ratio is >/=1.00. Signal/cutoff ratio result >/= 5.00 is 97% predictive of positivity for recombinant immunoblot assay (RIBA) and will be reported to the [place] Department of Public Health as required. Blood Venipuncture / Unknown 05/09/2025 8:32 AM CDT 05/09/2025 8:32 AM CDT us Ruth Mcdaniels BLANKET WEAVER, TREAD BUILDER CHEMISTRY ORDERABLES Fin al Result [facility] [address] [place] [address], * (ABNORMAL) CMP (COMPREHENSIVE METABOLIC PANEL) (05/09/2025 8:32 AM CDT) SODIUM 138 136 - 145 mmol/L 05/09/2025 1:17 PM CDT [facility] POTASSIUM 4.6 3.5 - 5.1 mmol/L 05/09/2025 1:17 PM CDT [facility] CHLORIDE 104 98 - 107 mmol/L 05/09/2025 1:17 PM CDT [facility] CO2, VENOUS 27 22 - 30 mmol/L 05/09/2025 1:17 PM CDT [facility] ANION GAP 11.6 <18.0 mmol/L 05/09/2025 1:17 PM CDT [facility] GLUCOSE 88 70 - 99 mg/dL 05/09/2025 1:17 PM CDT [facility] BUN 21(H) 5 - 18 mg/dL 05/09/2025 1:17 PM CDT [facility] CREATININE, BLOOD 0.81 0.60 - 1.00 mg/dL 05/09/2025 1:17 PM CDT [facility] BUN/CREATININE RATIO 26(H) 12 - 20 ratio 05/09/2025 1:17 PM CDT [facility] TOTAL PROTEIN 7.5 6.0 - 8.0 g/dL 05/09/2025 1:17 PM [facility] ALBUMIN 4.6 3.5 - 5.0 g/dL 05/09/2025 1:17 PM [facility] A/G RATIO 1.6 1.0 - 2.2 05/09/2025 1:17 PM [facility] CALCIUM 9.5 8.7 - 10.5 mg/dL 05/09/2025 1:17 PM [facility] T BILI 0.4 0.2 - 1.2 mg/dL 05/09/2025 1:17 PM [facility] SGOT (AST) 20 <43 U/L 05/09/2025 1:17 PM [facility] SGPT (ALT) 18 <56 U/L 05/09/2025 1:17 PM [facility] ALKALINE PHOSPHATASE 54 40 - 150 U/L 05/09/2025 1:17 PM [facility] IS THE PATIENT REQUIRED TO BE FASTING? No 05/09/2025 1:17 PM [facility] GFR, ESTIMATED >60 >=60 05/09/2025 1:17 PM [facility] Comment: Creatinine Clearance is the preferred criteria for selecting drug dose adjustments in renally impaired patients. The GFR is provided as additional pertinent clinical information. GFR is reported in mL/min/1.73 sq m. Calculation based on the 2020 Chronic Kidney Disease Epidemiology Collaboration (CKD-EPI) equation refit without adjustment for race. GFR, EST. >60 >=60 025 1:17 PM [facility] Comment: Creatinine Clearance is the preferred criteria for selecting drug dose adjustments in renally impaired patients. The GFR is provided as additional pertinent clinical information. GFR is reported in mL/min/1.73 sq m. Calculation based on the 2009 Chronic Kidney Disease Epidemiology Collaboration (CKD-EPI). GFR, EST. NONAFRICAN >60 >=60 05/09/2025 1:17 PM CDT [facility] Comment: Creatinine Clearance is the preferred criteria for selecting drug dose adjustments in renally impaired patients. The GFR is provided as additional pertinent clinical information. GFR is reported in mL/min/1.73 sq m. Calculation based on the 2009 Chronic Kidney Disease Epidemiology Collaboration (CKD-EPI). Blood Venipuncture / Unknown 05/09/2025 8:32 AM CDT 05/09/2025 8:32 AM CDT us Ruth Mcdaniels BLANKET WEAVER, TREAD BUILDER CHEMISTRY ORDERABLES Fin al Result Performing Organization Address City/[facility] Co de Phone Number [facility] [address] [place] [address] * US - CHEST (04/24/2025 12:00 AM CDT) 04/24/2025 us Provider Scan IMG US ORDERABLES Final Result Performing Organization Address City/[facility]/ZIP Co de Phone Number SCAN * MAMMOGRAM UNILATERAL GENERIC (04/24/2025 12:00 AM CDT) 04/24/2025 us Provider Scan IMG MAMMO ORDERABLES Final Resul t Performing Organization Address City/[facility] Co de Phone Number SCAN from Last 3 Months Insurance [facility] Care Teams Outdoor Emergency Care Technician Relationship Specialty Start Date End Date Ruth Mcdaniels, BLANKET WEAVER, TREAD BUILDER [address] [place] [address] PCP - General Advanced Practice Nurse 02/20/24
--- OUTSIDE RECORDS SUMMARY | 2025-05-29 10:35 | XMS_ITS | Encounter Summary ---
Author Organization [facility] Healthcare Address [address] [place] [address] Care Team Providers Care Plant And Equipment Worker Name Role Phone Jenelle Booker MD Unavailable [phone] Catarino Sam MD Primary Care Provider [phone] Loli Adam MD Unavailable [phone] Encounter Details Date Type Department Care Team (Late st Contact Info) Description 04/28/2025 Results Follow-Up [facility] Medical [facility] Women[facility] at [address] [address] Loli Adam MD [address] [place] [id number] Diagnostic Mammogram Bilateral W Tello Social History Tobacco Use Types Packs/Day Years Used Date Smoking Tobacco: Former Cigarettes Q uit: 07/17/2002 Passive Smoke Exposure: Past Smokeless Tobacco: Never Alcohol Use Standard Drinks/Week [...] on file Legal Sex Female 11:42 AM CLINICAL NURSE SPECIALIST Gender Identity Not on file Sexual Orientation Straight 10/10/2022 8: 42 AM CDT documented as of this encounter Plan of Treatment Not on file documented as of this encounter Visit Diagnoses Not on filedocumented in this encounter Care Teams Plant And Equipment Worker Relationship Specialty Start Date End Date Catarino Sam MD [address] [facility] [address] [place] [address] PCP - General Family Medicine 01/26/22 Jenelle Booker MD Cigar Machine Feeder Obstetrics and Gynecology 04/05/19 Loli Adam MD [address] [place] [id number] Consulting Physician Obstetrics and Gynecology 09/05/24 documented as of this encounter
--- OUTSIDE RECORDS SUMMARY | 2025-05-29 10:35 | XMS_ITS | Clinical Summary ---
Author Organization [facility] Address [address] [place] [address] Care Team Providers Care Corset Fitter Name Role Phone Jose Greco MD Primary Care Provider [phone] Source Comments [facility],non-owned Affiliates and Associated Physician Practices is amultiple site organization consisting of ambulatory clinics and hospital sitesin [place], [place], [place] and [place]. This disclosure is being madepursuant to the Care Everywhere program and may not contain all information available regarding this patient. Last updated 18.[facility] Allergies Active Allergy Reactions Criticality Noted Date Comments Chlorzoxazone Skin Reactions Medium 07/18/2014 Sulfa Drugs Skin Reactions Medium 07/18/2014 Active Problems Problem Noted Date Diagnosed Date Endocrine, nutritional and m etabolic diseases complicating , unspecified trimester 07/18/2014 Hypothyroidism 07/18/2014 Personal history of other di seases of the female genital tract 07/18/2014 Polyhydramnios in second trimester 07/18/2014 Overview (10/16/2017): outside scan ENRIQUE 33.5 on 07/14/14 Family History Medical History Relation Name Comments Diabetes Father Cancer - Breast Maternal Grandmother Diabetes Maternal Grandmother Thyroid Disease Mother Relation Name Status Comments Father Maternal Grandmother Mother Social History Tobacco Use Types Packs/Day Years Used Date Smoking Tobacco: Never Smokeless Tobacco: Never Alcohol Use Standard Drinks/Week Comments No 0 (1 standard drink = 0.6 oz pur e alcohol) Comments Unknown Sex and Gender Information Value Date Recorded Sex Assigned at Not on file Legal Sex Female 5:56 PM IDENTIFICATION TECHNICIAN Gender Identity Not on file Sexual Orientation Not on file Last Filed Vital Signs Vital Sign Reading Time Taken Comments Blood Pressure 88/60 07/18/2014 10:19 AM IDENTIFICATION TECHNICIAN Pulse - - Temperature - - Respiratory Rate - - Oxygen Saturation - - Inhaled Oxygen Concentration - - Weight 87.1 kg (192 lb) 07/18/2014 10:19 AM IDENTIFICATION TECHNICIAN Height 167.6 cm (5' 6) 07/18/2014 12:34 PM IDENTIFICATION TECHNICIAN Body Mass Index 30.99 07/18/2014 10:19 AM IDENTIFICATION TECHNICIAN Plan of Treatment Health Maintenance Due Date Last Done Comments LIPID TESTING 1982 MAMMOGRAM 1982 HIV SCREENING 1997 HEPATITIS C SCREENING 09/30/2000 DTAP/TDAP/TD VACCINES (1 - Tdap) 2001 HEPATITIS B VACCINE (1 of 3 - 19+ 3-dose series) 2001 PAP SMEAR 10/06/2003 HPV VACCINE (1 - 3-dose SCDM series) 2009 Cervical Cancer Screening 2012 PAP with HPV 2012 DEPRESSION SCREENING 07/17/2024 COVID-19 VACCINE (1 - 2024-2 6 season) 2025 INFLUENZA VACCINE (#1) 2025 ZOSTER VACCINE (1 of 2) 2032 HIB VACCINE Aged Out No longer eligi ble based on patient's age to complete this topic MENINGOCOCCAL (Group B) VACC INE SHARED DECISION-MAKING Aged Out No longer eligibl e based on patient's age to complete this topic MENINGOCOCCAL GROUPS A/C/Y/W VACCINE Aged Out No longer eligible b ased on patient's age to complete this topic PNEUMOCOCCAL VACCINE Aged Out No long er eligible based on patient's age to complete this topic Insurance [facility] Care Teams Corset Fitter Relationship Specialty Start Date End Date Jose Greco MD [address] [place] [address] PCP - General 05/15/19
--- OUTSIDE RECORDS SUMMARY | 2025-05-29 10:35 | XMS_ITS | Patient Health Record ---
Author Organization [facility] [place] ([address]) Address [address] [place] [address] Care Team Providers Care Manufacturing Clerk Name Role Phone Sam Catarino Primary Care Provider John Butler Unavailable [phone] Allergies Allergen (clinical drug ingredient) Drug/Non Drug Allergy documented on EMR Reaction Allergy Type Onset Date Status Substance with sulfonamide structure and antibacterial mechanism of action (substance) Sulfa (uncoded) Hives Allergy Active Reason For Referral No Information Medications Medication SIG (Take, Route, Frequency, Duration) Notes Start Date End Date Status SUMAtriptan Succinate 100 MG Oral; Duration: 4 Days Activ e Creatine - as directed Active Spironolactone 50 MG Oral; Duration: 90 Days Active Levothyroxine Sodium 25 MCG Oral; Duration: 90 Days Active Progesterone 100 MG 1 capsule at bedtime Orally Once a day Active Magnesium 250 MG 1 tablet with a meal Orally Once a day Active ZyrTEC Allergy 10 MG 1 tablet Orally Onc e a day Active Testosterone 0.2 % as directed Transdermal Active ZyrTEC 10 MG 1 tablet Orally Once a day Not-Taking Fluticasone Propionate 50 MCG/ACT 2 sprays in each nostril Nasally Twice a day; Duration: 30 days 02/12/2024 Active Problems Problem Type SNOMED Code ICD Code Onset Dates Problem Status W/U Status Risk Notes Problem Chronic rhinitis (91699515) Chronic rhinitis (J31.0) Active confirmed Problem Hypertrophy of nasal turbinates (71718409) Hypertrophy of nasal turbinates (J34.3) Active confirmed Problem Functional dyspepsia (4272899) Functional dyspepsia (K30) Active confirmed Problem Eruption of skin (610363080) Rash and other nonspecific skin eruption (R21) Active confirmed Problem Allergy to sulfonamides (90261146) Allergy status to sulfonamides (Z88.2) Active confirmed Plan Of Treatment No Information Insurance Providers Payer Name Payer Address Payer Phone Subscriber Number Group Number Insured Name Patient Relationship to Insured Coverage Start Date Coverage End Date [facility] [address] [place] [address] [id number] Xena Garcia Self - patient is the insured 4 Medical (General) History Medical History History ICD Code Thyrotoxicosis, unspecified without thyr otoxic crisis or storm E05.90 Surgical History Surgery Date(Month/Year) Appendectomy Endometriosis Laparoscopy Laparoscopic Salpingectomy 02/08/2024
--- NOTE | 2025-05-29 11:26 | PC.NURSE ---
1125 patient to triage desk and told security that she was going to follow up with her provider.
--- OUTSIDE RECORDS SUMMARY | 2025-05-29 12:55 | XMS_ITS | Clinical Summary ---
Author Organization [facility] Address [address] [place] [address] Care Team Providers Care Quality Lead Name Role Phone Jose Greco MD Primary Care Provider [phone] Source Comments [facility],non-owned Affiliates and Associated Physician Practices is amultiple site organization consisting of ambulatory clinics and hospital sitesin [place], [place], [place] and [place]. This disclosure is being madepursuant to the Care Everywhere program and may not contain all information available regarding this patient. Last updated 18.[facility] Allergies Active Allergy Reactions Criticality Noted Date [...] on file Legal Sex Female 5:56 PM BUSINESS SERVICES ASSOCIATE Gender Identity Not on file Sexual Orientation Not on file Last Filed Vital Signs Vital Sign Reading Time Taken Comments Blood Pressure 88/60 07/18/2014 10:19 AM BUSINESS SERVICES ASSOCIATE Pulse - - Temperature - - Respiratory Rate - - Oxygen Saturation - - Inhaled Oxygen Concentration - - Weight 87.1 kg (192 lb) 07/18/2014 10:19 AM BUSINESS SERVICES ASSOCIATE Height 167.6 cm (5' 6) 07/18/2014 12:34 PM BUSINESS SERVICES ASSOCIATE Body Mass Index 30.99 07/18/2014 10:19 AM BUSINESS SERVICES ASSOCIATE Plan of Treatment Health Maintenance Due Date [...] patient's age to complete this topic Insurance [facility] Care Teams Quality Lead Relationship Specialty Start Date End Date Jose Greco MD [address] [place] [address] PCP - General 05/15/19
--- OUTSIDE RECORDS SUMMARY | 2025-05-29 12:55 | XMS_ITS | Clinical Summary ---
Author Organization [facility] Address [address] [place] [address] Phone Care Team Providers Care Tube Drawer Name Role Phone Ruth Mcdaniels OUTSIDE SALES INSPECTOR, BLOCK PLACER Primary Care Provider + Allergies Active Allergy [...] Department Care Team Description 05/19/2025 Results Follow-Up [facility] [address] [facility] [place] [address] Ruth Mcdaniels APRN, BLOCK PLACER LIPID PANEL, CMP (COMPREHENSIVE METABOLIC PANEL), HEPATITIS C ANTIBODY, Additional followed-up results: 2 05/09/2025 8:30 AM CDT Lab [facility] [address] [place] [address] [facility] Well adult exam; Need for hepatitis C screening test Discharge Disposition: Discharged to home or Selfcare 05/09/2025 Travel 05/07/2025 Travel 04/25/2025 Travel 04/17/2025 Refill [facility] [address] [facility] [place] [address] Ruth Mcdaniels APRN, BLOCK PLACER Medication Refill 04/16/2025 4:00 PM CDT Office Visit [facility] [address] [facility] [place] [address] Ruth Mcdaniels APRN, YURIDIA Well adult exam (Primary Dx); Need for hepatitis C screening test Discharge Disposition: Discharged to home or Selfcare 04/16/2025 Travel 04/13/2025 Refill [facility] [address] [place] [address] Ruth Mcdaniels APRN, BLOCK PLACER Medication Refill 03/24/2025 Refill [facility] [address] [facility] [place] [address] Ruth Mcdaniels APRN, YURIDIA Medication Refill 03/22/2025 [facility] [place] [address] Ruth Mcdaniels APRN, YURIDIA Medication Refill 03/05/2025 Refill [facility] [address] [place] [address] Ruth Mcdaniels APRN, BLOCK PLACER Medication Refill from Last 3 Months Immunizations Immunization Administration Dates Next Due Covid-19 Vaccine, Vector-nr, Rs-ad26, Pf, 0.5 Ml (Invoca/J&AppLabs) 09/18/2020 Influenza Vaccine, Quadrivalent, PF 05/18,04/28/2020,04/11/2019,2013 Influenza, [...] How often do you attend chur or yazdanism services? More than 4 times per year 02/19/2024 Do you belong to any clubs o r organizations such as rastafari groups, unions, fraternal or athletic groups, or [...] Total Score - Questions 1-9 0 07/2024 [facility] - Occupational Stress Questionnaire Answer Date Recorded [...] place to sleep or slept in a snf (including now)? No 10/30/2023 Housing Stability Vital Sign Answer Rancho e Recorded In the last 12 months, was t here a time when you were not able to pay the mortgage or rent on time? No 02/19/2024 Number of Times Moved in the Last Year Not on fi le 02/19/2024 At any time in the past 12 m [facility], were you homeless or living in a snf (including now)? No 02/19/2024 Social Connection and Isolation Panel Answer Date Recorded In a typical week, how many times do you talk on the phone with family, friends, or neighbors? More than three times a week 04/16/2025 How often do you get togethe r with friends or relatives? More than three times a week 04/16/2025 How often do you attend chur ch or yazdanism services? More than 4 times per year 04/16/2025 Do you belong to any clubs o r organizations such as rastafari groups, unions, fraternal or athletic groups, or [...] and heating? Not hard at all 04/16/2025 [facility] Occupat ional Health - Occupational Stress [...] time in the past 12 m [facility], were you homeless or living in a snf (including now)? No 04/16/2025 [facility] Answer Date Recorded In the past [...] Sex Assigned at Female 06/19/2023 10:29 AM MACHINE STRIPPER CUTTER Legal Sex Female 8:48 PM CDT Gender Identity Female 06/19/2023 10:29 AM MACHINE STRIPPER CUTTER Sexual Orientation Straight 06/19/2023 10 :29 AM MACHINE STRIPPER CUTTER Last Filed Vital Signs Vital Sign Reading [...] Visit [facility] [address] [place] [address] Ruth Mcdaniels, OUTSIDE SALES INSPECTOR, BLOCK PLACER [address] [place] [address] Health Maintenance Due Date Last Done Comments [...] mIU/L 05/09/2025 1:27 PM CDT [facility] Blood Venipuncture / Unknown 05/09/2025 8:32 AM CDT 05/09/2025 8:32 AM CDT us Ruth Mcdaniels OUTSIDE SALES INSPECTOR, BLOCK PLACER CHEMISTRY ORDERABLES Fin al Result [facility] [address] [place] [address] * (ABNORMAL) CBC WITH AUTO DIFFERENTIAL (05/09/2025 8:32 AM CDT) WBC 3.52(L) 4.00 - 12.00 10(3)/mcL 05/09/2025 12:33 PM CDT [facility] RBC 4.25 3.80 - 5.30 10(6)/mcL 05/09/2025 12:33 PM CDT [facility] HEMOGLOBIN (HGB) 13.6 12.0 - 15.8 g/dL 05/09/2025 12:33 PM CDT [facility] HEMATOCRIT (HCT) 40.0 36.0 - 47.0 % 05/09/2025 12:33 PM CDT [facility] MCV 94.1 82.0 - 96.0 fL 05/09/2025 12:33 PM CDT [facility] MCH 32.0 26.0 - 34.0 pg 05/09/2025 12:33 PM CDT [facility] MCHC 34.0 31.0 - 36.0 g/dL 05/09/2025 12:33 PM CDT [facility] PLATELET COUNT 328 140 - 440 10(3)/mcL 05/09/2025 12:33 PM CDT [facility] RDW 12.1 11.8 - 15.5 % 05/09/2025 12:33 PM CDT [facility] MPV 9.2(L) 9.7 - 12.4 fL 05/09/2025 12:33 PM CDT [facility] NEUTROPHILS 50.8 47.0 - 73.0 % 05/09/2025 12:33 PM CDT [facility] LYMPHOCYTES 38.9 18.0 - 42.0 % 05/09/2025 12:33 PM CDT [facility] MONOCYTES 8.0 4.0 - 12.0 % 05/09/2025 12:33 PM CDT [facility] EOSINOPHILS 1.4 0.0 - 5.0 % 05/09/2025 12:33 PM CDT [facility] BASOPHILS 0.9 0.0 - 1.0 % 05/09/2025 12:33 PM CDT [facility] IMMATURE GRANULOCYTE 0.0 0.0 - 0.4 % 05/09/2025 12:33 PM CDT [facility] ABSOLUTE NEUTROPHILS 1.79 1.60 - 7.70 10(3)/[facility] 05/09/2025 12:33 PM CDT [facility] ABSOLUTE LYMPHOCYTES 1.37 1.30 - 3.20 10(3)/[facility] 05/09/2025 12:33 PM CDT [facility] ABSOLUTE MONOCYTES 0.28 0.20 - 1.00 10(3)/[facility] 05/09/2025 12:33 PM CDT [facility] ABSOLUTE EOSINOPHIL 0.05 0.00 - 0.40 10(3)/[facility] 05/09/2025 12:33 PM CDT [facility] ABSOLUTE BASOPHILS 0.03 0.00 - 0.10 10(3)/mcL 05/09/2025 12:33 PM CDT [facility] ABSOLUTE IMMATURE GRANULOCYTE 0.00 0.00 - 0.03 10 (3) mcL. 05/09/2025 12:33 PM CDT [facility] NRBC PER 100 WBC 0 05/09/20 12:33 PM CDT [facility] Blood Venipuncture / Unknown 05/09/2025 8:32 AM CDT 05/09/2025 8:32 AM CDT us Ruth Mcdaniels OUTSIDE SALES INSPECTOR, BLOCK PLACER HEMATOLOGY ORDERABLES Fi nal Result [facility] [address] [place] [address] * (ABNORMAL) LIPID PANEL (05/09/2025 8:32 AM CDT) CHOLESTEROL 219(H) <200 mg/dL 05/09/2025 1:17 PM CDT [facility] TRIGLYCERIDES 63 <150 mg/dL 05/09/2025 1:17 PM CDT [facility] HDL CHOLESTEROL 79 >40 mg/dL 1:17 PM CDT [facility] LDL 127 <130 mg/dL 05/09/2025 1:17 PM CDT [facility] VLDL 13 10 - 50 mg/dL 05/09/2025 1:17 PM CDT [facility] CHOL/HDL RATIO 2.8 0.0 - 4.4 05/09/2025 1:17 PM CDT [facility] NON-HDL CHOLESTEROL 140(H) <130 mg/dL 05/09/2025 1:17 PM CDT [facility] IS THE PATIENT REQUIRED TO BE FASTING? Yes 05/09/2025 1:17 PM CDT [facility] HAS THE PATIENT BEEN FASTING? Yes 05/09/2025 1:17 PM CDT [facility] Blood Venipuncture / Unknown 05/09/2025 8:32 AM CDT 05/09/2025 8:32 AM CDT Ruth Mcdaniels OUTSIDE SALES INSPECTOR, BLOCK PLACER CHEMISTRY ORDERABLES Fin al Result [facility] [address] [place] [address] * HEPATITIS C ANTIBODY (05/09/2025 8:32 AM CDT) hepatitis C antibody 0.19 <1 S/CO 05/09/2025 10:39 PM CDT [facility] Comment: Signal/Cutoff ratio < 0.79 is Nondetected Signal/Cutoff ratio 0.80-0.99 is Grayzone Signal/Cutoff ratio > 0.99 is Detected Supplemental assays are recommended if signal/cutoff ratio is >/=1.00. Signal/cutoff ratio result >/= 5.00 is 97% predictive of positivity for recombinant immunoblot assay (RIBA) and will be reported to the [place] Department of Public Health as required. Blood Venipuncture / Unknown 05/09/2025 8:32 AM CDT 05/09/2025 8:32 AM CDT us Ruth Mcdaniels OUTSIDE SALES INSPECTOR, BLOCK PLACER CHEMISTRY ORDERABLES Fin al Result [facility] [address] [place] [address], * (ABNORMAL) CMP (COMPREHENSIVE METABOLIC PANEL) (05/09/2025 8:32 AM CDT) SODIUM 138 136 - 145 mmol/L 05/09/2025 1:17 PM CDT [facility] POTASSIUM 4.6 3.5 - 5.1 mmol/L 05/09/2025 1:17 PM CDT [facility] CHLORIDE 104 98 - 107 mmol/L 05/09/2025 1:17 PM CDT [facility] CO2, VENOUS 27 22 - 30 mmol/L 05/09/2025 1:17 PM CDT [facility] ANION GAP 11.6 <18.0 mmol/L 05/09/2025 1:17 PM CDT [facility] GLUCOSE 88 70 - 99 mg/dL 05/09/2025 1:17 PM CDT [facility] BUN 21(H) 5 - 18 mg/dL 05/09/2025 1:17 PM CDT [facility] CREATININE, BLOOD 0.81 0.60 - 1.00 mg/dL 05/09/2025 1:17 PM CDT [facility] BUN/CREATININE RATIO 26(H) 12 - 20 ratio 05/09/2025 1:17 PM CDT [facility] TOTAL PROTEIN 7.5 6.0 - 8.0 g/dL 05/09/2025 1:17 PM [facility] ALBUMIN 4.6 3.5 - 5.0 g/dL 05/09/2025 1:17 PM [facility] A/G RATIO 1.6 1.0 - 2.2 05/09/2025 1:17 PM [facility] CALCIUM 9.5 8.7 - 10.5 mg/dL 05/09/2025 1:17 PM [facility] T BILI 0.4 0.2 - 1.2 mg/dL 05/09/2025 1:17 PM [facility] SGOT (AST) 20 <43 U/L 05/09/2025 1:17 PM [facility] SGPT (ALT) 18 <56 U/L 05/09/2025 1:17 PM [facility] ALKALINE PHOSPHATASE 54 40 - 150 U/L 05/09/2025 1:17 PM [facility] IS THE PATIENT REQUIRED TO BE FASTING? No 05/09/2025 1:17 PM [facility] GFR, ESTIMATED >60 >=60 05/09/2025 1:17 PM [facility] Comment: Creatinine Clearance is the preferred criteria for selecting drug dose adjustments in renally impaired patients. The GFR is provided as additional pertinent clinical information. GFR is reported in mL/min/1.73 sq m. Calculation based on the 2020 Chronic Kidney Disease Epidemiology Collaboration (CKD-EPI) equation refit without adjustment for race. GFR, EST. >60 >=60 025 1:17 PM [facility] Comment: Creatinine Clearance is [...] 05/09/2025 8:32 AM CDT us Ruth Mcdaniels OUTSIDE SALES INSPECTOR, BLOCK PLACER CHEMISTRY ORDERABLES Fin al Result Performing Organization Address City/[facility] Co de Phone Number [facility] [address] [place] [address] * US - CHEST (04/24/2025 12:00 AM CDT) 04/24/2025 us Provider Scan IMG US ORDERABLES Final Result Performing Organization Address City/[facility]/ZIP Co de Phone Number SCAN * MAMMOGRAM UNILATERAL GENERIC (04/24/2025 12:00 AM CDT) 04/24/2025 us Provider Scan IMG MAMMO ORDERABLES Final Resul t Performing Organization Address City/[facility] Co de Phone Number SCAN from Last 3 Months Insurance [facility] Care Teams Tube Drawer Relationship Specialty Start Date End Date Ruth Mcdaniels, OUTSIDE SALES INSPECTOR, BLOCK PLACER [address] [place] [address] PCP - General Advanced Practice Nurse 02/20/24
--- OUTSIDE RECORDS SUMMARY | 2025-05-29 12:55 | XMS_ITS | Encounter Summary ---
Author Organization [facility] Address [address] [place] [address] Care Team Providers Care Wait Staff Name Role Phone Jenelle Booker MD Unavailable [phone] Catarino Sam MD Primary Care Provider [phone] Loli Adam MD Unavailable [phone] Encounter Details Date Type Department Care Team (Late st Contact Info) Description 04/28/2025 Results Follow-Up [facility] at [address] [address] Loli Adam MD [address] [place] [address] Diagnostic Mammogram Bilateral W Tello Social [...] on file Legal Sex Female 11:42 AM SUPERVISOR FINISH END Gender Identity Not on file Sexual Orientation Straight 10/10/2022 8: 42 AM CDT documented as of this encounter Plan of Treatment Not on file documented as of this encounter Visit Diagnoses Not on filedocumented in this encounter Care Teams Wait Staff Relationship Specialty Start Date End Date Catarino Sam MD [address] [facility] [address] [place] [address] PCP - General Family Medicine 01/26/22 Jenelle Booker MD Manager Retention Obstetrics and Gynecology 04/05/19 Loli Adam MD [address] [place] [id number] Consulting Physician Obstetrics and Gynecology 09/05/24 documented as of this encounter
--- OUTSIDE RECORDS SUMMARY | 2025-05-29 12:55 | XMS_ITS | Encounter Summary ---
Author Organization [facility] Address [address] [place] [address] Phone Care Team Providers Care Senior Salesforce Developer Name Role Phone Catarino Sam MD Primary Care Provider [phone] Ruth Mcdaniels APRN, [facility] Primary Care Provider + Reason for Visit * Reason Comments Medication Refill Encounter Details Date Type Department Care Team (Late st Contact Info) Description 06/28/2022 [facility]ill [facility] [address] [place] [address] Catarino Sam MD [address] [place] [address] Medication Refill Social History Tobacco [...] Sex Assigned at Female 06/19/2023 10:[address] Legal Sex Female 8:48 PM CDT Gender Identity Female 06/19/2023 10:[address] Sexual Orientation Straight 06/19/2023 10 :[address] documented as of this encounter Miscellaneous Notes [...] Dept 01/11/22 Office Visit Alejandrina Soni APRN, INSPECTOR BICYCLE [facility] [place] 12/17/21 Office Visit Catarino Sam MD [facility] 08/05/21 Office Visit Catarino Sam MD [facility] Showing recent visits within past 365 days and meeting all other requirements Future Appointments No visits were found meeting these conditions. Showing future appointments within next 90 days and meeting all other requirements Passed - No active on record WAY INSPECTOR documented in this encounter Plan of Treatment Upcoming Encounters Date Type Department Care Team (Late st Contact Info) Description 04/20/2026 7:45 AM CDT Office Visit [facility] - Family [facility] - [place] [address] [place] [address] Ruth Mcdaniels, VESSEL MANAGER, INSPECTOR BICYCLE [address] [place] [address] documented as of this encounter Visit Diagnoses Not on filedocumented in this encounter Additional Health Concerns Assessment Noted Time PHQ-9 Depression Total Score: 0 06/07/20 19 2:[address] documented as of this encounter Care Teams Senior Salesforce Developer Relationship Specialty Start Date End Date Catarino Sam MD PCP - General Family Medicine 06/07/19 02/19/24 Ruth Mcdaniels, VESSEL MANAGER, INSPECTOR BICYCLE [address] [place] [address] PCP - General Advanced Practice Nurse 02/20/24 documented as of this encounter
--- OUTSIDE RECORDS SUMMARY | 2025-05-29 12:55 | XMS_ITS | Clinical Summary ---
Author Organization [facility] Address [address] [place] [address] Care Team Providers Care Travel Professional Name Role Phone Jenelle Booker MD Unavailable [phone] Catarino Sam MD Primary Care Provider [phone] Loli Adam MD Unavailable [phone] Allergies Active Allergy Reactions Criticality Noted Date [...] 04/2025 Assessment & Plan (09/19/2024 4:26 PM PILE DRIVING TECHNICIAN): Due in 12/2024 Encounter for sterilization 07/31/2024 Assessment & Plan (09/19/2024 4:21 PM PILE DRIVING TECHNICIAN): Doing well Assessment & Plan (08/29/2024 4:27 PM PILE DRIVING TECHNICIAN): Procedure reviewed along with risk, benefits and [...] Overview (04/08/2019): [] Co-management vs. [] Full [facility] Care; Referring Provider: Jenelle Booker [phone] [x] Dating Criteria: LMP 08/15/18; US 03/05/19 [...] [] MOC: [] Method of feeding: [] Site Interpreter: [] PP Depression Discussed: Hypothyroid in , [...] Department Care Team Description 04/28/2025 Results Follow-Up [facility] Women[facility] Care at [address] [phone] Loli Adam MD Diagnostic Mammogram Bilateral W Tello 04/24/2025 8:30 AM CDT - 04/24/2025 11:59 PM CDT Hospital Encounter [facility] - Breast [facility] Floor 8 [place] [address] Abnormal mammogram Discharge Disposition: Discharge to home or self care 04/24/2025 8:28 AM CDT - 04/24/2025 11:59 PM CDT Hospital Encounter [facility] - Breast Imaging [address] [facility] Floor [address] [place] [address] Abnormal mammogram; Lump in female breast; Fibroadenoma of breast, left; Extremely dense tissue of both breasts on mammography; Family history of breast cancer Discharge Disposition: Discharge to home or self care 04/24/2025 8:00 AM CDT Office Visit [facility] [address] [phone] Luli Khan NP Fibroadenoma of breast, left (Primary Dx); Extremely dense tissue of both breasts on mammography; Family history of breast cancer 04/15/2025 Orders Only [facility] Medicine Surgery [address] [place] [phone] Luli Khan NP 04/10/2025 Orders Only [facility] [address] [place] [phone] Allyssa Oates NP Abnormal mammogram (Primary Dx) 04/10/2025 Orders Only [facility] [address] [place] [phone] Allyssa Oates NP Abnormal mammogram (Primary Dx) 04/07/2025 Orders Only [facility] [address] [place] [address] [address] [place] [address] Vanessa Resendez NP 03/28/2025 Results Follow-Up [facility] Women[facility] Care at [address] [phone] Vanessa Resendez NP Pap, reflex HPV 03/26/2025 8:30 AM CDT Office Visit [facility] [address] [place] [address] [address] [place] [address] Vanessa Resendez NP Well woman exam (Primary [...] cancer Maternal Grandmother Coronary artery disease Mother Pascula nary artery disease; Other Mother Alive and [...] on file Legal Sex Female 11:42 AM PILE DRIVING TECHNICIAN Gender Identity Not on file Sexual [...] LEFT breast was performed by a trained assessment technician and by Dr. Torres. BREAST PARENCHYMAL COMPOSITION: [...] LEFT breast was performed by a trained assessment technician and by Dr. Torres. BREAST PARENCHYMAL COMPOSITION: [...] Pap test has been evaluated with the Molecular TemplatesPrep(R) Imaging System. Car Repair Supervisor Lavon Camacho Comment: YQ, CT(ASCP) CT Screening Location: [facility], [facility] [place] [address] CLIA: [id number] Slide preparation performed at: [employer] [facility], [address] [place] [address], [address] CLIA: [id number] Comment Kaylen Romero Comment: EXPLANATORY NOTE: The [...] 03/27/2025 4:19 PM CDT Vanessa M. Hoemmen SECURITY TRAINER LAB CYTOLOGY ORDERABLES Fin al Result [facility] [address] [place] [address] * Hepatitis C antibody (11/08/2018) SCRIBED HCV ab negative Blood specimen (specimen) Jenelle Booker MD LAB MICROBIOLOGY - [facility] AL ORDERABLES Final Result from Last 3 Months or Most Recently Relevant to Health Maintenance Insurance [employer] [place] [employer] [place] Care Teams Travel Professional Relationship Specialty Start Date End Date Catarino Sam MD 2 [facility] [address] [place] [address] PCP - General Family Medicine 01/26/22 Jenelle Booker MD Resin Remover Obstetrics and Gynecology 04/05/19 Loli Adam MD [address] [facility] [address] [place] [address] Consulting Physician Obstetrics and Gynecology 09/05/24
--- OUTSIDE RECORDS SUMMARY | 2025-05-29 12:55 | XMS_ITS | Encounter Summary ---
Author Organization [facility] Address [address] [place] [address] Care Team Providers Care Embedded Software Development Engineer Name Role Phone Jenelle Booker MD Unavailable [phone] Catarino Sam MD Primary Care Provider [phone] Loli Adam MD Unavailable [phone] Encounter Details Date Type Department Care Team (Late st Contact Info) Description 03/28/2025 Results Follow-Up [facility] Women[facility] Care at [address] [phone] Vanessa Resendez, MINE SAFETY MANAGER 4 [facility] [address] [address] Pap, reflex HPV Social History Tobacco Use [...] on file Legal Sex Female 11:42 AM SENIOR CISCO NETWORK ENGINEER Gender Identity Not on file Sexual Orientation [...] on filedocumented in this encounter Care Teams Embedded Software Development Engineer Relationship Specialty Start Date End Date Catarino Sam MD [address] [address] PCP - General Family Medicine 01/26/22 Jenelle Booker MD Machine Molder Obstetrics and Gynecology 04/05/19 Loli Adam MD [address] [facility] [address] [place] [address] Consulting Physician Obstetrics and Gynecology 09/05/24 documented as of this encounter
--- OUTSIDE RECORDS SUMMARY | 2025-05-29 12:55 | XMS_ITS | Encounter Summary ---
Author Organization [facility] Address [address] [place] [address] Phone Care Team Providers Care Avionics Engineer Name Role Phone Catarino Sam MD Primary Care Provider [phone] Ruth Mcdaniels APRN, [facility] Primary Care Provider + Reason for Visit * Reason Comments Medication Refill Encounter Details Date Type Department Care Team (Late st Contact Info) Description 06/27/2023 Refill [facility] [address] [place] [address] Catarino Sam MD [address] [place] [address] Medication Refill Social History Tobacco [...] Sex Assigned at Female 06/19/2023 10:29 AM HOSE SPRAYER Legal Sex Female 8:48 PM CDT Gender Identity Female 06/19/2023 10:29 AM HOSE SPRAYER Sexual Orientation Straight 06/19/2023 10 :29 AM HOSE SPRAYER documented as of this encounter Miscellaneous Notes [...] Dept 11/11/22 Telemedicine Lorenzo Miller APRN, YURIDIA [facility] 08/10/22 Telemedicine Lorenzo Miller APRN, [facility]ID[facility] 07/19/22 Office Visit Ruth Mcdaniels APRN, YURIDIA [facility] 01/11/22 Office Visit Alejandrina Soni APRN, TRANSMISSION LINE ENGINEER [facility] 12/17/21 Office Visit Catarino Sam MD [facility] 08/05/21 Office Visit Catarino Sam MD [facility] Showing recent visits within past 730 days and meeting all other requirements Future Appointments No visits were found meeting these conditions. Showing future appointments within next 90 days and meeting all other requirements Passed - Number of active Serotonergic medications less than 3 SPRAYER documented in this encounter Plan of Treatment Upcoming Encounters Date Type Department Care Team (Late st Contact Info) Description 04/20/2026 7:45 AM CDT Office Visit [facility] - Family Medicine - [place] [address] [place] [address] Ruth Mcdaniels, JOB SUPERINTENDENT, TRANSMISSION LINE ENGINEER [address] [place] [address] documented as of this encounter Visit Diagnoses Not on filedocumented in this encounter Additional Health Concerns Assessment Noted Time PHQ-9 Depression Total Score: 0 06/07/20 19 2:39 PM HOSE SPRAYER documented as of this encounter Care Teams Avionics Engineer Relationship Specialty Start Date End Date Catarino Sam MD PCP - General Family Medicine 06/07/19 02/19/24 Ruth Mcdaniels, JOB SUPERINTENDENT, TRANSMISSION LINE ENGINEER [address] [place] [address] PCP - General Advanced Practice Nurse 02/20/24 documented as of this encounter
--- OUTSIDE RECORDS SUMMARY | 2025-05-29 12:55 | XMS_ITS | Encounter Summary ---
Author Organization [facility] Address [address] [place] [address] Phone Care Team Providers Care Farm Truck Driver Name Role Phone Catarino Sam MD Primary Care Provider [phone] Ruth Mcdaniels APRN, [facility] Primary Care Provider + Reason for Visit * Reason Comments Medication Refill Encounter Details Date Type Department Care Team (Late st Contact Info) Description 02/20/2021 Refill [facility] [address] [place] [address] Catarino Sam MD [address] [place] [address] Medication Refill Social History Tobacco [...] Sex Assigned at Female 06/19/2023 10:29 AM PROJECT ANALYST Legal Sex Female 8:48 PM CDT Gender Identity Female 06/19/2023 10:29 AM PROJECT ANALYST Sexual Orientation Straight 06/19/2023 10 :29 AM PROJECT ANALYST documented as of this encounter Miscellaneous Notes * Telephone Encounter - Marily Hickman - 02/22/2021 12:47 PM CDT Called patient and she made an appointment on 02/24/2021. * Telephone Encounter - Jacqui Fagan CMA - 02/22/2021 12:46 PM CDT [employer] ([facility]: [place]) message was sent to patient. * Telephone [...] Office Visit [facility] - Family [facility] [address] [place] [address] Ruth Mcdaniels, CHRISTIAN, SENIOR SHAREPOINT DEVELOPER [address] [place] [address] documented as of this encounter Visit Diagnoses Not on filedocumented in this encounter Additional Health Concerns Infection Onset Date Last Indicated Resolved Time COVID - 19 06/30/2021 06/30/2021 07/20/2021 12:1 6 AM PROJECT ANALYST Assessment Noted Time PHQ-9 Depression Total Score: 0 06/07/20 19 2:39 PM PROJECT ANALYST documented as of this encounter Care Teams Farm Truck Driver Relationship Specialty Start Date End Date Catarino Sam MD PCP - General Family Medicine 06/07/19 02/19/24 Ruth Mcdaniels, CHRISTIAN, SENIOR SHAREPOINT DEVELOPER [address] [place] [address] PCP - General Advanced Practice Nurse 02/20/24 documented as of this encounter
--- OUTSIDE RECORDS SUMMARY | 2025-05-29 12:55 | XMS_ITS | Encounter Summary ---
Author Organization [facility] Address [address] [place] [address] Phone Care Team Providers Care Sprinkler Installer Name Role Phone Catarino Sam MD Primary Care Provider [phone] Ruth Mcdaniels APRN, [facility] Primary Care Provider + Reason for Visit * Reason Comments Medication Refill Encounter Details Date Type Department Care Team (Late st Contact Info) Description 02/07/2022 Refill [facility] - Family Medicine [facility] [address] [place] [address] Catarino Sam MD [address] [place] [address] Medication Refill Social History Tobacco [...] Sex Assigned at Female 06/19/2023 10:29 AM SUPERVISOR NUTRITIONAL YEAST Legal Sex Female 8:48 PM CDT Gender Identity Female 06/19/2023 10:29 AM SUPERVISOR NUTRITIONAL YEAST Sexual Orientation Straight 06/19/2023 10 :29 AM SUPERVISOR NUTRITIONAL YEAST COVID-19 Exposure Response Date Recorded In the [...] [facility] 12/17/21 Office Visit Catarino Sam MD [facility] Showing recent visits within past 182 [...] Description 04/20/2026 7:45 AM CDT Office Visit [facility] - Family Medicine - [place] [address] [place] [address] Ruth Mcdaniels APRN, FINISH REPAIR WORKER [address] [place] [address] documented as of this encounter Visit Diagnoses Not on filedocumented in this encounter Additional Health Concerns Assessment Noted Time PHQ-9 Depression Total Score: 0 06/07/20 2:39 PM SUPERVISOR NUTRITIONAL YEAST documented as of this encounter Care Teams Sprinkler Installer Relationship Specialty Start Date End Date Catarino Sam MD PCP - General Family Medicine 06/07/19 02/19/24 Ruth Mcdaniels APRN, FINISH REPAIR WORKER [address] [place] [address] PCP - General Advanced Practice Nurse 02/20/24 documented as of this encounter
--- OUTSIDE RECORDS SUMMARY | 2025-05-29 12:55 | XMS_ITS | Encounter Summary ---
Author Organization [facility] Address [address] [place] [address] Phone Care Team Providers Care Lending Advisor Name Role Phone Catarino Sam MD Primary Care Provider [phone] Ruth Mcdaniels APRN, [facility] Primary Care Provider + Reason for Visit * Reason Comments Medication Refill Encounter Details Date Type Department Care Team (Late st Contact Info) Description 06/26/2023 Refill [facility] - [facility] Medicine [facility] [address] [place] [address] Catarino Sam MD [address] [place] [address] Medication Refill Social History Tobacco [...] Sex Assigned at Female 06/19/2023 10:29 AM POLYGRAPH OPERATOR Legal Sex Female 8:48 PM CDT Gender Identity Female 06/19/2023 10:29 AM POLYGRAPH OPERATOR Sexual Orientation Straight 06/19/2023 10 :29 AM POLYGRAPH OPERATOR documented as of this encounter Miscellaneous Notes [...] APRN, CNP [facility] 08/10/22 Telemedicine Lorenzo Miller APRN, CNP [facility] 07/19/22 Office Visit Ruth Mcdaniels APRN, CNP [facility] Showing recent visits within past 365 days and meeting all other requirements Future Appointments No visits were found meeting these conditions. Showing future appointments within next 90 days and meeting all other requirements Passed - No active on record GRAPH OPERATOR documented in this encounter Plan of Treatment Upcoming Encounters Date Type Department Care Team (Late st Contact Info) Description 04/20/2026 7:45 AM CDT Office Visit [facility] - Family Medicine - [place] [address] [place] [address] Ruth Mcdaniels APRN, SECURITY COMPLIANCE SPECIALIST [address] [place] [address] documented as of this encounter Visit Diagnoses Not on filedocumented in this encounter Additional Health Concerns Assessment Noted Time PHQ-9 Depression Total Score: 0 06/07/20 19 2:39 PM POLYGRAPH OPERATOR documented as of this encounter Care Teams Lending Advisor Relationship Specialty Start Date End Date Catarino Sam MD PCP - General Family Medicine 06/07/19 02/19/24 Ruth Mcdaniels, RUG RECEIVING CLERK, SECURITY COMPLIANCE SPECIALIST [address] [place] [address] PCP - General Advanced Practice Nurse 02/20/24 documented as of this encounter
== END 2025-05-29 12:07 | disposition left against medical advice (07) ==
LOC: ANHED 12:05
PROVIDERS: PCP Family Medicine
DX: R10.30 Lower abdominal pain, unspecified (principal)
CPT/HCPCS: 99199